=== PATIENT | female | born 1935 | race Caucasian/White ===

== ENCOUNTER 2018-05-06 20:25 | Inpatient (IN) | payer MEDICARE ==
[~2018-05-06] VITALS: Ht 149.9 cm; Wt 61.7 kg
[2018-05-06 20:38] VITALS: BP 155/71
[2018-05-06 20:59] LABS: ABSOLUTE EOSINOPHILS 0.1 thou/uL (0.0-0.7); ABSOLUTE MONOCYTES 0.5 thou/uL (0.0-1.2); ABSOLUTE NEUTROPHILS 3.6 thou/uL (1.6-8.1); BASOPHILS 0.5 %; EOSINOPHILS 1.5 %; HEMATOCRIT 39.8 % (37.0-47.0); HEMOGLOBIN 13.3 gm/dL (12.0-15.0); LYMPHOCYTES 32.6 %; MCH 31.6 pg (26.0-34.0); MCHC 33.3 g/dL (28.0-37.0); MCV 94.7 fL (80.0-100.0); MONOCYTES 8.5 %; MPV 7.4 fl. (7.2-11.1); NUCLEATED RBCS 0 /100WBC; PLATELET COUNT* 170 thou/uL (150-400); POLYS 56.9 %; RDW-CV 14.4 % (10.5-14.5); WBC 6.3 thou/uL (4.0-11.0)
[2018-05-06 21:08] LABS: ANION GAP 5 mmol/L (7-16); BUN 16 mg/dL (7-18); CALCIUM 9.4 mg/dL (8.5-10.1); CHLORIDE 101 mmol/L (98-107); CO2 34 mmol/L (21-32); CREATININE 0.8 mg/dL (0.6-1.3); GLUCOSE 172 mg/dL (70-99); POTASSIUM 3.6 mmol/L (3.5-5.1); SODIUM 140 mmol/L (136-145)
[2018-05-06 21:10] LABS: INR 1.1; PROTIME 10.9 Seconds (9.20-11.50)
[2018-05-06 21:11] LABS: URINE CLARITY CLEAR; URINE COLOR AMBER; URINE SPECIFIC GRAVITY ND (1.005-1.030)
[2018-05-06] MEDS ORDERED: XANAX 0.25 MG0.25 MG PO (21:16)
[2018-05-06] MEDS ORDERED: ATENOLOL 50MG T50 M1 PO (21:16)
[2018-05-06] MEDS ORDERED: AMLODIPINE BESY10 MG PO (21:16)
[2018-05-06] MEDS ORDERED: COZAAR 25 MG TA25 M1 PO (21:17)
[2018-05-06] MEDS ORDERED: GLUCOTROL5 MG PO (21:17)
[2018-05-06] MEDS ORDERED: METFORMIN HCL500 MG PO (21:17)
[2018-05-06] MEDS ORDERED: IBUPROFEN 200200 M1 PO (21:17)
[2018-05-06 21:18] LABS: ACETEST (KETONE CONFIRMATORY) Negative (Negative); SSA (PROTEIN CONFIRMATORY) NEGATIVE (Negative); URINE BILIRUBIN ND (Negative); URINE GLUCOSE-RANDOM ND (Negative); URINE KETONES ND (Negative); URINE PROTEIN ND (Negative); URINE REDUCING SUBSTANCE NEGATIVE (Negative)
[2018-05-06] MEDS ORDERED: ZOCOR20 MG PO (21:18)
[2018-05-06] MEDS ORDERED: ROBAXIN 750 MG750 M1 PO (21:18)
[2018-05-06 21:19] LABS: ALBUMIN 3.7 g/dL (3.4-5.0); ALKALINE PHOSPHATASE 87 U/L (46-116); LIPASE 141 U/L (73-393); NT-PRO BRAIN NAT PEPTIDE 442 pg/mL (<300); SGOT 25 U/L (15-37); SGPT 33 U/L (30-65); TOTAL BILIRUBIN 0.9 mg/dL (<0.1-1.0); TOTAL PROTEIN 6.9 g/dL (6.4-8.2); TROPONIN-I LEVEL <0.06 ng/mL (<0.06)
[2018-05-06 21:19] LABS: ICTOTEST (BILI CONFIRMATORY) Negative (Negative); URINE BLOOD ND (Negative); URINE LEUKOCYTES-REFLEX ND (Negative); URINE NITRITE-REFLEX ND (Negative); URINE UROBILINOGEN ND E.U./dl (0.2-1.0)
[2018-05-06] MEDS ORDERED: FUROSEMIDE 40 M40 M1 PO (21:19)
[2018-05-06] MEDS ORDERED: TRAZODONE 150150 M1 PO (21:19)
[2018-05-06] MEDS ORDERED: TRAMADOL 50 MG50 MG PO (21:19)
[2018-05-06 21:27] LABS: SQUAMOUS NONE SEEN /LPF (0-3)
[2018-05-06 21:28] LABS: BACTERIA-REFLEX 1-9 Few /HPF (None Seen); CASTS None Seen /LPF (None Seen); CRYSTALS None Seen /LPF (None Seen); MUCUS None Seen strn/LPF (None Seen); URINE RBC 3-10 Few /HPF (0-2); URINE WBC-REFLEX None Seen /HPF (0-5)
[2018-05-06 22:25] VITALS: BP 140/70
[2018-05-06 23:30] VITALS: BP 145/45
[2018-05-07 04:00] VITALS: BP 138/51
[2018-05-07 04:20] LABS: HEMATOCRIT 35.2 % (37.0-47.0); HEMOGLOBIN 11.9 gm/dL (12.0-15.0); MCH 31.9 pg (26.0-34.0); MCHC 33.9 g/dL (28.0-37.0); MCV 94.2 fL (80.0-100.0); MPV 7.8 fl. (7.2-11.1); RBC 3.73 mil/uL (4.20-5.00); RDW-CV 14.1 % (10.5-14.5); WBC 5.9 thou/uL (4.0-11.0)
[2018-05-07 04:42] LABS: ALBUMIN 3.1 g/dL (3.4-5.0); CREATININE 0.7 mg/dL (0.6-1.3); POTASSIUM 3.7 mmol/L (3.5-5.1); TOTAL BILIRUBIN 0.7 mg/dL (<0.1-1.0); TOTAL PROTEIN 5.7 g/dL (6.4-8.2)
[2018-05-07] MEDS ORDERED: MELATONIN5 M1 PO (07:28)
[2018-05-07] MEDS ORDERED: COD LIVER OIL1 EAC4 PO (07:28)
[2018-05-07] MEDS ORDERED: ZINC30 M1 PO (07:30)
[2018-05-07] MEDS ORDERED: VITAMIN D31000 UNI2 PO (07:31)
[2018-05-07] MEDS ORDERED: VITAMIN C250 MG PO (07:32)
[2018-05-07] MEDS ORDERED: MAGOX 400400 MG PO (07:32)
[2018-05-07 08:10] VITALS: BP 153/61
[2018-05-07 11:28] VITALS: BP 126/51
--- NOTE | 2018-05-07 13:03 | EKG ---
[place] [address] ELECTROCARDIOGRAM REPORT Name: BRENDEN EASTON Room: [address] ADM IN [facility].#: [id number] Admission: 05/06/18 Attend Phys: Kelvin Rojas Discharge: Date of : 37 Report #: [id number] THIS REPORT FOR: //name// [facility] ED Test Date: 2018-05-06 Test Time: 20:31:14 Pat Name: BRENDEN EASTON Department: Room: [facility] Gender: F Linen Room Attendant: [place] : 1935 Requested By: Catalina Lopez Order Number: [id number] MD: Feng Baig Measurements Intervals [place] Rate: 54 P: 39 IN: 192 QRS: -11 QRSD: 98 T: 40 QT: 438 QTc: 416 Interpretive Statements Sinus bradycardia LVH with secondary repolarization abnormality Anterior Q waves, possibly due to LVH No previous ECG available for comparison Electronically Signed On 05-07-2018 13:03:29 CDT by Feng Baig [email or web address] <ELECTRONICALLY SIGNED> By: Feng Baig MD, [facility] 05/07/18 1303 30 30 Feng Baig MD, FACC /EPI
--- NOTE | 2018-05-07 16:27 | 2DMMODE ---
[place] [address] 2 D/M-MODE ECHOCARDIOGRAM Name: BRENDEN EASTON Room: [address] IN [facility]#: [id number] Admission: 05/06/18 Attend Phys: Brandan Loyola Discharge: Date of : 37 Date of Service: 05/07/18 1627 Report #: [id number] THIS REPORT FOR: //name// APPROVED REPORT Study performed: 05/07/2018 14:53:52 EXAM: Comprehensive 2D, Doppler, and color-flow Echocardiogram Patient Location: In-Patient Room #: 218 Status: routine BSA: 1.57 HR: 56 bpm BP: 153/61 mmHg Rhythm: NSR Other Information Study Quality: Good Indications Bradycardia Chest Pain 2D Dimensions IVSd: 10.14 (7-11mm) LVOT Diam: 20.23 (18-24mm) LVDd: 44.30 mm PWd: 8.68 (7-11mm) Ascending Ao: 31.21 (22-36mm) LVDs: 27.07 (25-40mm) Aortic Root: 29.45 mm Volumes Left Atrial Volume (Systole) LA ESV Index: 42.30 mL/m2 Aortic Valve AoV Peak Enrrique.: 1.52 m/s AO Peak Gr.: 9.19 mmHg LVOT Max P.62 mmHg AO Mean Gr.: 4.64 mmHg LVOT Mean P.27 mmHg LVOT Max V: 0.81 m/s AO V2 VTI: 36.20 cm LVOT Mean V: 0.51 m/s DIMITRI (VTI): 1.98 cm2 LVOT V1 VTI: 22.34 cm Mitral Valve E/A Ratio: 1.11 MV Decel. Time: 204.48 [place] [address] 2 D/M-MODE ECHOCARDIOGRAM Name: BRENDEN EASTON Room: [address] IN .R.#: [id number] Admission: 05/06/18 Attend Phys: Brandan Loyola Discharge: Date of : 37 Date of Service: 05/07/18 1627 Report #: [id number] MV E Max Enrrique.: 0.90 m/s MV PHT: 59.30 ms MVA (PHT): 3.71 cm2 TDI E/Lateral E': 12.86 E/Medial E': 11.25 Medial E' Enrrique.: 0.08 m/s Lateral E' Enrrique.: 0.07 m/s Pulmonary Valve PV Peak Enrrique.: 0.88 m/s PV Peak Gr.: 3.08 mmHg Tricuspid Valve RAP Estimate: 5.00 mmHg TR Peak Gr.: 20.12 mmHg RVSP: 25.00 mmHg PA Pressure: 25.00 mmHg Left Ventricle The left ventricle is normal size. There is normal LV segmental wall motion. There is normal left ventricular wall thickness. Left ventricular systolic function is normal. LVEF is 60-65%. Left ventricular filling pattern is normal for age. Right Ventricle The right ventricle is normal size. The right ventricular systolic function is normal. Atria Left atrium is mildly dilated. The right atrium size is normal. Aortic Valve The aortic valve is normal in structure. No aortic regurgitation is present. There is no aortic valvular stenosis. Mitral Valve There is mitral annular calcification. Trace mitral regurgitation. No evidence of mitral valve stenosis. Tricuspid Valve The tricuspid valve is normal in structure. Trace tricuspid regurgitation. No pulmonary hypertension. Pulmonic Valve The pulmonary valve is normal in structure. Trace [place] [address] 2 D/M-MODE ECHOCARDIOGRAM Name: BRENDEN EASTON Room: [address]#: [id number] Admission: 05/06/18 Attend Phys: Brandan Loyola Discharge: Date of : 37 Date of Service: 05/07/18 1627 Report #: [id number] Great Vessels The aortic root is normal in size. IVC is normal in size and collapses >50% with inspiration. Pericardium There is no pericardial effusion. <Conclusion> The left ventricle is normal size. There is normal left ventricular wall thickness. Left ventricular systolic function is normal. LVEF is 60-65%. Left ventricular filling pattern is normal for age. Left atrium is mildly dilated. Trace mitral regurgitation. Trace tricuspid regurgitation. No pulmonary hypertension. <ELECTRONICALLY SIGNED> By: Tre Perez MD, FACC 05/07/18 162 26 26 Tre Perez MD, FACC /INF
[2018-05-07 19:15] VITALS: BP 136/61
[2018-05-08] VITALS (7 sets, daily range): BP systolic 114–139; BP diastolic 47–61
[2018-05-08 04:37] LABS: ABSOLUTE EOSINOPHILS 0.1 thou/uL (0.0-0.7); ABSOLUTE LYMPHOCYTES 1.9 thou/uL (0.8-5.3); ABSOLUTE MONOCYTES 0.6 thou/uL (0.0-1.2); ABSOLUTE NEUTROPHILS 4.1 thou/uL (1.6-8.1); BASOPHILS 0.5 %; EOSINOPHILS 1.9 %; HEMATOCRIT 37.2 % (37.0-47.0); HEMOGLOBIN 12.3 gm/dL (12.0-15.0); LYMPHOCYTES 28.7 %; MCH 31.5 pg (26.0-34.0); MCHC 33.1 g/dL (28.0-37.0); MCV 95.3 fL (80.0-100.0); MONOCYTES 8.2 %; MPV 7.7 fl. (7.2-11.1); NUCLEATED RBCS 0 /100WBC; PLATELET COUNT* 156 thou/uL (150-400); POLYS 60.7 %; RDW-CV 14.3 % (10.5-14.5); WBC 6.7 thou/uL (4.0-11.0)
[2018-05-08 04:58] LABS: CALCIUM 9.2 mg/dL (8.5-10.1); CREATININE 0.8 mg/dL (0.6-1.3); POTASSIUM 3.9 mmol/L (3.5-5.1)
--- NOTE | 2018-05-08 12:58 | CARDNUC ---
[place] [address] CARDIAC NUCLEAR IMAGING REPORT Name: BRENDEN EASTON Room: [address] IN [facility]#: [id number] Admission: 05/06/18 Attend Phys: Brandan Loyola Discharge: Date of : 37 Date of Service: 05/08/18 1257 Report #: [id number] THIS REPORT FOR: //name// APPROVED REPORT Study performed: 05/07/2018 09:52:00 Indication: Chest pain Patient Location: In-Patient Room #: 218 Stress Tech: [place] Stress Nurse: Alma Calderon RN Ht: 4 ft 11 in Wt: 136 lbs BSA: 1.57 m2 BMI: 27.46 Medical History Medical History: hyperlipidemia, hypertension, diabetes Medications: enoparin, amlodipine, atenolol, losartan Allergies: nkda Cardiac Risk Factors: age, hyperlipidemia, hypertension, diabetes, family hx Previous Cardiac Procedures: none Exercise History: Indeterminate Resting Data Rest SPECT myocardial perfusion imaging was performed in supine position 30 minutes following the intravenous injection of 10.2 mCi of Tc-99m Sestamibi. Time of rest injection: 14:50 The images were gated to evaluate regional wall motion and calculate left ventricular ejection fraction. Administration Route: IV Stress Test Details Stress Test: Pharmacologic stress testing performed using 0.4 mg of regadenoson per 5 mL given IV over 10 seconds. Reason for pharmacologic stress test: physical limitation. HR Max Heart Rate (APMHR): 139 bpm Resting HR: 60 bpm Target HR (85% APMHR): 118 bpm Max HR Achieved: 78 bpm % of APMHR: 56 Recovery HR: 72 [place] [address] CARDIAC NUCLEAR IMAGING REPORT Name: JEMMABRENDEN Michael Room: [address]#: [id number] Admission: 05/06/18 Attend Phys: Brandan Loyola Discharge: Date of : 37 Date of Service: 05/08/18 1257 Report #: [id number] Resting BP: 144/68 mmHg Recovery BP: 155/75 mmHg ECG Resting ECG: Sinus Rhythm, nonspecific ST-T abnormalities Stress ECG: Sinus Rhythm, nonspecific ST-T abnormalities ST Change: None Arrhythmia: None Recovery ECG: Sinus Rhythm, nonspecific ST-T abnormalities Recovery ST Change: None Recovery Arrhythmia: None Clinical Reason for Termination: Completed protocol Exercise duration: 0 min sec Exercise capacity: 1 METs The patient tolerated Lexiscan infusion without significant symptoms. Nurse Comments grace done dt pt weakness Stress ECG Conclusion The baseline 12-lead EKG shows sinus rhythm with nonspecific ST segment depression. EKGs obtained during and post Lexiscan infusion show sinus rhythm with no significant ST or T wave changes when compared baseline. There were no stress-induced arrhythmias. Study Quality Study: Good Artifact: No artifact Study Data At rest, the left ventricular ejection fraction was 70%.. Post stress, the left ventricular ejection was 71%.. TID = 0.93. Perfusion Normal left ventricular perfusion. Wall Motion Normal left [place] [address] CARDIAC NUCLEAR IMAGING REPORT Name: BRENDEN EASTON Room: [address]#: [id number] Admission: 05/06/18 Attend Phys: Brandan Loyola Discharge: Date of : 37 Date of Service: 05/08/18 1257 Report #: [id number] Nuclear Conclusion ECG Findings: negative for ischemia Clinical Findings: negative for ischemia Nuclear Findings: negative for ischemia Exercise Capacity: not assessed Left Ventricular Function: normal Risk Study: low Myocardial perfusion images show no defect to suggest infarct or ischemia. Left ventricular systolic function is normal on gated studies. This is a low risk study. <Conclusion> The baseline 12-lead EKG shows sinus rhythm with nonspecific ST segment depression. EKGs obtained during and post Lexiscan infusion show sinus rhythm with no significant ST or T wave changes when compared baseline. There were no stress-induced arrhythmias. <ELECTRONICALLY SIGNED> By: Tre Perez MD, [facility] 05/08/18 1257 1257 1257 Tre Perez MD, FACC /INF
== END 2018-05-08 19:24 | disposition home or self-care (01) | DRG 194 ==
LOC: M.ERS 20:25 → M.TBA-ER 21:47 → M.2W 21:47
PROVIDERS: Emergency Medicine; Internal Medicine; ADMIT Internal Medicine
DX: R09.1 Pleurisy (principal); E44.1 Mild protein-calorie malnutrition; R07.89 Other chest pain; M54.9 Dorsalgia, unspecified; M25.519 Pain in unspecified shoulder; E78.5 Hyperlipidemia, unspecified; I10 Essential (primary) hypertension; E11.9 Type 2 diabetes mellitus without complications; F41.9 Anxiety disorder, unspecified; M19.90 Unspecified osteoarthritis, unspecified site; R35.0 Frequency of micturition; G89.29 Other chronic pain; E11.65 Type 2 diabetes mellitus with hyperglycemia; Z23 Encounter for immunization; Z90.49 Acquired absence of other specified parts of digestive tract; Z79.899 Other long term (current) drug therapy

== ENCOUNTER 2018-06-25 10:55 | Emergency (ER) | payer MEDICARE ==
[~2018-06-25] VITALS: Ht 149.9 cm; Wt 59.9 kg
[~2018-06-25 10:55] MED LIST: AMLODIPINE BESY10 MG PO; ATENOLOL 50MG T50 M1 PO; COD LIVER OIL1 EAC4 PO; COZAAR 25 MG TA25 M1 PO; FUROSEMIDE 40 M40 M1 PO; GLUCOTROL5 MG PO; IBUPROFEN 200200 M1 PO; MAGOX 400400 MG PO; MELATONIN5 M1 PO; METFORMIN HCL500 MG PO; ROBAXIN 750 MG750 M1 PO; TRAMADOL 50 MG50 MG PO; TRAZODONE 150150 M1 PO; VITAMIN C250 MG PO; VITAMIN D31000 UNI2 PO; XANAX 0.25 MG0.25 MG PO; ZINC30 M1 PO; ZOCOR20 MG PO
[2018-06-25 12:39] LABS: ABSOLUTE EOSINOPHILS 0.1 thou/uL (0.0-0.7); ABSOLUTE LYMPHOCYTES 1.6 thou/uL (0.8-5.3); ABSOLUTE MONOCYTES 0.6 thou/uL (0.0-1.2); ABSOLUTE NEUTROPHILS 4.3 thou/uL (1.6-8.1); BASOPHILS 0.5 %; EOSINOPHILS 2.2 %; HEMATOCRIT 38.6 % (37.0-47.0); HEMOGLOBIN 12.9 gm/dL (12.0-15.0); LYMPHOCYTES 24.2 %; MCH 32.1 pg (26.0-34.0); MCHC 33.3 g/dL (28.0-37.0); MCV 96.5 fL (80.0-100.0); MONOCYTES 8.6 %; MPV 7.3 fl. (7.2-11.1); NUCLEATED RBCS 0 /100WBC; PLATELET COUNT* 183 thou/uL (150-400); POLYS 64.5 %; RDW-CV 14.1 % (10.5-14.5); WBC 6.7 thou/uL (4.0-11.0)
[2018-06-25 12:47] LABS: ANION GAP 8 mmol/L (7-16); BUN 15 mg/dL (7-18); CALCIUM 9.5 mg/dL (8.5-10.1); CHLORIDE 100 mmol/L (98-107); CO2 29 mmol/L (21-32); CREATININE 0.8 mg/dL (0.6-1.3); GLUCOSE 119 mg/dL (70-99); POTASSIUM 3.5 mmol/L (3.5-5.1); SODIUM 137 mmol/L (136-145)
[2018-06-25 12:58] LABS: ALBUMIN 3.4 g/dL (3.4-5.0); ALKALINE PHOSPHATASE 89 U/L (46-116); NT-PRO BRAIN NAT PEPTIDE 280 pg/mL (<300); SGOT 33 U/L (15-37); SGPT 30 U/L (30-65); TROPONIN-I LEVEL <0.06 ng/mL (<0.06)
[2018-06-25 13:22] LABS: INFLUENZA A ANTIGEN None Detected (None Detect); INFLUENZA B ANTIGEN None Detected (None Detect)
[2018-06-25] MEDS ORDERED: MUCINEX600 MG PO (13:59)
[2018-06-25] MEDS ORDERED: VENTOLIN HFA 1818 GM INH (13:59)
[2018-06-25] MEDS ORDERED: LEVAQUIN 750 M750 MG PO (13:59)
[2018-06-25 14:06] LABS: URINE BILIRUBIN NEGATIVE (Negative); URINE BLOOD NEGATIVE (Negative); URINE CLARITY CLEAR; URINE COLOR YELLOW; URINE GLUCOSE-RANDOM NEGATIVE (Negative); URINE KETONES NEGATIVE (Negative); URINE LEUKOCYTES-REFLEX NEGATIVE (Negative); URINE NITRITE-REFLEX NEGATIVE (Negative); URINE PROTEIN NEGATIVE (Negative); URINE SPECIFIC GRAVITY <= 1.005 (1.005-1.030); URINE UROBILINOGEN 0.2 E.U./dl (0.2-1.0)
[2018-06-25 14:28] VITALS: BP 123/57
--- NOTE | 2018-06-25 17:50 | EKG ---
[place] [address] ELECTROCARDIOGRAM REPORT Name: EASTONBRENDEN CRAWFORD Room: [facility]#: [id number] Admission: 06/25/18 Attend Phys: Discharge: 06/25/18 Date of : 37 Report #: [id number] THIS REPORT FOR: //name// [facility] ED Test Date: 2018-06-25 Test Time: 12:04:26 Pat Name: BRENDEN EASTON Department: Room: Gender: F Diving Fisher: YESENIA : 1935 Requested By: Kev Fernando Order Number: [id number] MD: Tre Perez Measurements Intervals [place] Rate: 42 P: 60 [place]: 170 QRS: -10 QRSD: 97 T: 11 QT: 495 QTc: 414 Interpretive Statements Sinus bradycardia Left ventricular hypertrophy Anterior Q waves, possibly due to LVH Compared to ECG 05/06/2018 20:31:14 Early repolarization no longer present Electronically Signed On 06-25-2018 17:50:20 FOUNDRY WORKER GENERAL by Tre Perez [email or web address] <ELECTRONICALLY SIGNED> By: Tre Perez MD, [facility] 06/25/18 5830 1204 1204 Tre Perez MD, [facility] /EPI
== END 2018-06-25 14:28 | disposition home or self-care (01) ==
LOC: M.ERS 10:55
PROVIDERS: Nurse Practitioner Family
DX: J18.9 Pneumonia, unspecified organism (principal); Z98.890 Other specified postprocedural states

== ENCOUNTER 2018-06-27 12:59 | Inpatient (IN) | payer MEDICARE ==
[~2018-06-27] VITALS: Ht 149.9 cm; Wt 58.9 kg
[~2018-06-27 12:59] MED LIST changes: +LEVAQUIN 750 M750 MG PO; +MUCINEX600 MG PO; +VENTOLIN HFA 1818 GM INH
[2018-06-27 13:04] VITALS: BP 160/59
[2018-06-27 13:42] LABS: ABSOLUTE LYMPHOCYTES 0.8 thou/uL (0.8-5.3); ABSOLUTE MONOCYTES 0.6 thou/uL (0.0-1.2); ABSOLUTE NEUTROPHILS 3.7 thou/uL (1.6-8.1); BASOPHILS 0.5 %; EOSINOPHILS 0.3 %; HEMOGLOBIN 13.2 gm/dL (12.0-15.0); LYMPHOCYTES 14.9 %; MCHC 33.9 g/dL (28.0-37.0); MCV 94.6 fL (80.0-100.0); MONOCYTES 11.8 %; MPV 7.5 fl. (7.2-11.1); NUCLEATED RBCS 0 /100WBC; PLATELET COUNT* 203 thou/uL (150-400); POLYS 72.5 %; RBC 4.12 mil/uL (4.20-5.00); RDW-CV 13.9 % (10.5-14.5); WBC 5.1 thou/uL (4.0-11.0)
[2018-06-27 13:53] LABS: CALCIUM 9.9 mg/dL (8.5-10.1); CREATININE 0.9 mg/dL (0.6-1.3); POTASSIUM 3.6 mmol/L (3.5-5.1)
[2018-06-27 13:58] LABS: ALBUMIN 3.4 g/dL (3.4-5.0); TOTAL BILIRUBIN 1.1 mg/dL (<0.1-1.0); TOTAL PROTEIN 6.9 g/dL (6.4-8.2)
[2018-06-27 16:55] VITALS: BP 140/53
[2018-06-27 17:12] VITALS: BP 151/64
[2018-06-27] MEDS ORDERED: FLONASE 0.05%50 MCG NASAL (17:39)
--- NOTE | 2018-06-27 17:45 | NUR ---
PATIENT CAME TO THE FLO0R FROM THE ER IN STABLE CONDITION. VITAL SIGNS STABLE ON ROOM AIR. NO COMPLAINTS OF ANY PAIN AT THIS TIME. UP WITH STAND BY ASSIST AND WALKER TO THE BATHROOM, SOME WEAKNESS FROM ILLNESS. ROOM ORIENTATION AND ADMISSION ASSESSMENT DONE. CALL LIGHT IS IN REACH, WILL CONTINUE TO MONITOR,
[2018-06-27 18:43] LABS: URINE BILIRUBIN NEGATIVE (Negative); URINE BLOOD NEGATIVE (Negative); URINE CLARITY CLEAR; URINE COLOR YELLOW; URINE GLUCOSE-RANDOM NEGATIVE (Negative); URINE KETONES NEGATIVE (Negative); URINE LEUKOCYTES NEGATIVE (Negative); URINE NITRITE NEGATIVE (Negative); URINE PROTEIN NEGATIVE (Negative); URINE UROBILINOGEN 0.2 E.U./dl (0.2-1.0)
[2018-06-27 19:40] VITALS: BP 131/49
[2018-06-27 20:08] LABS: NT-PRO BRAIN NAT PEPTIDE 376 pg/mL (<300); TROPONIN-I LEVEL <0.06 ng/mL (<0.06)
[2018-06-28 00:08] VITALS: BP 119/49
[2018-06-28 04:05] VITALS: BP 114/96
[2018-06-28 04:32] LABS: HEMATOCRIT 36.3 % (37.0-47.0); HEMOGLOBIN 12.1 gm/dL (12.0-15.0); MCH 31.9 pg (26.0-34.0); MCHC 33.4 g/dL (28.0-37.0); MCV 95.6 fL (80.0-100.0); MPV 7.7 fl. (7.2-11.1); NUCLEATED RBCS 0 /100WBC; PLATELET COUNT* 215 thou/uL (150-400); RDW-CV 13.7 % (10.5-14.5); WBC 5.8 thou/uL (4.0-11.0)
[2018-06-28 04:36] LABS: INR 1.1; PROTIME 11.2 Seconds (9.20-11.50)
--- NOTE | 2018-06-28 04:55 | NUR ---
PT SLEPT ON AND OFF THIS SHIFT. ASSESSMENT DOCUMENTED. MEDS GIVEN PER -SEP. IV PATENT, FLUIDS INFUSING. NO REPORTS OF PAIN THIS SHIFT. PTS PM ACCUCHECK WAS 271, DR NOTIFIED, LOW DOSE SLIDING SCALE ORDERED AND ADMINISTERED PER -SEP. PT REMAINED NPO AFTER 0000. PT VOIDED PER BATHROOM WITH SBA. WILL CONTINUE WITH PLAN OF CARE.
[2018-06-28 05:01] LABS: CALCIUM 8.9 mg/dL (8.5-10.1); CREATININE 0.8 mg/dL (0.6-1.3); POTASSIUM 3.4 mmol/L (3.5-5.1); TOTAL BILIRUBIN 0.5 mg/dL (<0.1-1.0); TOTAL PROTEIN 6.3 g/dL (6.4-8.2)
[2018-06-28 05:36] LABS: ABSOLUTE LYMPHOCYTES 0.6 thou/uL (0.8-5.3); ABSOLUTE MONOCYTES 0.1 thou/uL (0.0-1.2); ABSOLUTE NEUTROPHILS 5.1 thou/uL (1.6-8.1); ANISOCYTOSIS Occasional; PLATELET ESTIMATE ADEQUATE; TOXIC GRANULATION 1+
[2018-06-28 08:30] VITALS: BP 144/70
--- NOTE | 2018-06-28 15:37 | EKG ---
[place] [address] ELECTROCARDIOGRAM REPORT Name: BRENDEN EASTON Room: [address] ADM IN .R.#: [id number] Admission: 06/27/18 Attend Phys: Lubna Harrison Discharge: Date of : 37 Report #: [id number] THIS REPORT FOR: //name// [facility] ED Test Date: 2018-06-27 Test Time: 13:11:31 Pat Name: BRENDEN EASTON Department: Room: [facility] Gender: F Design Engineer: Kaylyn SUNG : 1935 Requested By: Ciara Low Order Number: [id number] MD: Tre Perez Measurements Intervals [place] Rate: 56 P: 35 NM: 181 QRS: -13 QRSD: 106 T: 38 QT: 475 QTc: 459 Interpretive Statements Sinus rhythm Probable left ventricular hypertrophy Compared to ECG 06/25/2018 12:04:26 Sinus bradycardia no longer present Q waves no longer present Electronically Signed On 06-28-2018 15:37:19 PROJECT ENGINEERING DIRECTOR by Tre Perez [email or web address] <ELECTRONICALLY SIGNED> By: Tre Perez MD, FACC 06/28/18 1537 1311 1311 Tre Perez MD, FACC /EPI
[2018-06-28 16:00] VITALS: BP 125/49
--- NOTE | 2018-06-28 18:00 | NUR ---
PT ALERT AND ORIENTED X 4. DENIES PAIN. IVF INFUSING @ 100 MLS/HR. UP WITH SBA X 1 WITH WALKER. LEVAQUIN LISTED ALLERGY. APPLIED TOPICAL CREAMS FOR ITCHING TO BACK, EXTREMITIES, AND SCALP. IV INFILTRATED LATE IN AM-RESTARTED IN LAC. HOURLY ROUNDS MAINTAINED. CALL LIGHT WITHIN REACH.
[2018-06-28 18:07] LABS: IgG 470 mg/dL (700-1600)
[2018-06-28 19:30] VITALS: BP 144/75
[2018-06-28 21:46] LABS: TROPONIN-I LEVEL <0.06 ng/mL (<0.06)
[2018-06-29] VITALS: BP 149/62
[2018-06-29 04:00] VITALS: BP 156/79
[2018-06-29 04:57] LABS: ABSOLUTE LYMPHOCYTES 2.2 thou/uL (0.8-5.3); ABSOLUTE MONOCYTES 0.6 thou/uL (0.0-1.2); ABSOLUTE NEUTROPHILS 6.5 thou/uL (1.6-8.1); BASOPHILS 0.4 %; EOSINOPHILS 0.3 %; HEMATOCRIT 33.8 % (37.0-47.0); HEMOGLOBIN 11.4 gm/dL (12.0-15.0); LYMPHOCYTES 23.4 %; MCH 32.3 pg (26.0-34.0); MCHC 33.8 g/dL (28.0-37.0); MCV 95.5 fL (80.0-100.0); MONOCYTES 6.4 %; MPV 7.5 fl. (7.2-11.1); NUCLEATED RBCS 0 /100WBC; PLATELET COUNT* 216 thou/uL (150-400); POLYS 69.5 %; RBC 3.54 mil/uL (4.20-5.00); RDW-CV 14.2 % (10.5-14.5); WBC 9.4 thou/uL (4.0-11.0)
--- NOTE | 2018-06-29 05:00 | NUR ---
PT SLEPT MOST OF SHIFT. ASSESSMENT DOCUMENTED. MEDS GIVEN PER E-MAR. IV PATENT, FLUIDS DC'D. PT REPORTED HAVING CHEST PAIN AT THE BEGINING OF THIS SHIFT. SHE STATED IT WAS A HEAVY DULL PAIN ON THE LEFT SIDE OF HER CHEST AND ALSO IN HER LEFT HAND, BUT THAT IT DID NOT RADIATE DOWN HER ARM. EKG DONE PER PROTOCAL, VITAL SIGNS OBTAINED. DR NOTIFIED, ORDERS RECIEVED, PT PLACED ON TELE MONITOR. PT STATED THAT PAIN WOULD "MOVE AROUND" BUT DID NOT LAST VERY LONG. SHE STATED THAT SHE HAS HAD SIMILAR PAIN BEFORE BUT THAT IT HAS NEVER HURT BAD THAT BEFORE. ANXIETY MEDS GIVEN PER E-MAR WITH RELIEF. PT REFUSED MINERAL OIL SHE STATED THAT SHE KEPT GETTING IT IN HER EYES. WILL CONTINUE WITH PLAN OF CARE.
[2018-06-29 05:13] LABS: TROPONIN-I LEVEL <0.06 ng/mL (<0.06)
[2018-06-29 08:05] VITALS: BP 171/69
--- NOTE | 2018-06-29 10:27 | EKG ---
[place] [address] ELECTROCARDIOGRAM REPORT Name: EASTONBRENDEN Room: [address] ADM IN .R.#: [id number] Admission: 06/27/18 Attend Phys: Lubna Harrison Discharge: Date of : 37 Report #: [id number] THIS REPORT FOR: //name// [facility] Test Date: 2018-06-28 Test Time: 20:40:11 Pat Name: BRENDEN EASTON Department: Room: [address] Gender: F School Psychometrist: [facility] : 1935 Requested By: Thanh Monet Order Number: [id number] Ynes MD: Feng Baig Measurements Intervals [place] Rate: 65 P: 49 SC: 191 QRS: -4 QRSD: 96 T: 23 QT: 427 QTc: 444 Interpretive Statements Sinus arrhythmia nonspecific st changes Compared to ECG 06/27/2018 13:11:31 Sinus bradycardia no longer present Electronically Signed On 06-29-2018 10:27:08 HOSE FINISHER by Feng Baig [email or web address] <ELECTRONICALLY SIGNED> By: Feng Baig MD, [facility] 06/29/18 1027 39 39 Feng Baig MD, [facility] /EPI
[2018-06-29 14:47] LABS: ALBUMIN 2.8 g/dL (3.4-5.0); CALCIUM 8.6 mg/dL (8.5-10.1); CREATININE 0.9 mg/dL (0.6-1.3); POTASSIUM 3.4 mmol/L (3.5-5.1); TOTAL BILIRUBIN 0.7 mg/dL (<0.1-1.0); TOTAL PROTEIN 5.9 g/dL (6.4-8.2)
[2018-06-29 16:00] VITALS: BP 130/61
--- NOTE | 2018-06-29 16:25 | NUR ---
SW met with pt to complete initial assessment, introduce self, and SW role. SW also spoke with pt ugo Man over the phone (Magda known to SW from previous admission of Magda's mother who since is .) Pt lived with Magda for a while after pt sister's , but now lives in an apt alone. Pt alert, oriented, talkative. Pt lives in Sr HUD housing in [place]. Pt says she is Medicaid pending. Pt has a RW if needed. Pt had hx of HH in [place] and would be open to HH services at [place] if needed. Pt nidorian said she would be able to provide pt ride home but only after work/after 5 pm. SW to continue to follow to assist with safe dc planning.
--- NOTE | 2018-06-29 17:37 | NUR ---
PT ALERT AND ORIENTED X 4. PT DENIES PAIN. UP WITH SBA AND WALKER IN AM. PT APPEARED LETHARGIC FROM CLONAZEPAM. REPORTED HEADACHE--TYLENOL EFFECTIVE FOR PAIN RELIEF. PT REFUSED TOPICAL MEDICATIONS IN AM. PT MORE ALERT IN AFTERNOON. IV PATENT. CONTINUES ON BUSHING PRESS OPERATOR. X-RAY COMPLETED IN AFTERNOON. AMBULATED AROUND UNIT WITH SBA X1 AND WALKER. HOURLY ROUNDS MAINTAINED. NURSING TO CONTINUE TO MONITOR.
[2018-06-29 18:09] LABS: HEPATITIS B SURFACE AG Negative (Negative)
[2018-06-29 20:00] VITALS: BP 100/61
[2018-06-30] VITALS: BP 156/76
[2018-06-30 04:00] VITALS: BP 171/65
--- NOTE | 2018-06-30 05:21 | NUR ---
PT SLEPT ON AND OFF THIS SHIFT. ASSESSMENT DOCUMENTED. MEDS GIVEN PER E-SEP. IV PATENT. NO REPORTS OF PAIN THIS SHIFT. PT REPORTED THAT HER SCALP WAS STARTING TO ITCH AGAIN AND REQUESTED THE MINERAL OIL. PT AMBULATED IN [place] THIS SHIFT. TELE MONITOR IN PLACE READING SINUS ARRYTHMIA WITH OCCASIONAL PVC'S. WILL CONTINUE WITH PLAN OF CARE.
[2018-06-30 08:10] VITALS: BP 138/67
[2018-06-30 12:00] VITALS: BP 196/60
[2018-06-30 12:13] VITALS: BP 196/60
[2018-06-30] MEDS ORDERED: CEFDINIR300 MG PO (12:17)
--- NOTE | 2018-06-30 16:24 | NUR ---
ASSESSMENT COMPLETE. PT ALERT AND ORIENTED X4. CALM AND PLEASANT. PT DENIES ANXIETY. PT DENIES PAIN AND N/V. PT IS ON ROOM AIR WITH [place] SATS. SCD'S IN PLACE WHEN IN BED. PT IS ACCUCHECK. PO ABX GIVEN ORDERED. PT IS UP AD ROGELIO WITH STEADY GAIT. PT DISCHARGED HOME WITH NEICE. IV DC'D WITHOUT ANY DIFFICULTIES. DISCHARGE PAPERWORK AND SCRIPT SENT WITH PATIENT. PATIENT WENT TO PERSONAL VEHICLE VIA WHEELCHAIR WITH NURSING STAFF. PATIENT VERBALIZES UNDERSTANDING OF DISCHARGE INSTRUCTIONS.
[2018-06-30 16:35] VITALS: BP 196/60
[2018-07-01 15:11] LABS: ANA INTERPRETATION Negative (Negative)
== END 2018-06-30 16:20 | disposition home or self-care (01) | DRG 194 ==
LOC: M.ERS 12:59 → M.TBA-ER 14:44 → M.3W 14:44
PROVIDERS: Internal Medicine; Internal Medicine Gastroenterology; Physician Assistant; ADMIT Internal Medicine
DX: J15.9 Unspecified bacterial pneumonia (principal); E44.0 Moderate protein-calorie malnutrition; J44.0 Chronic obstructive pulmonary disease with (acute) lower respiratory infection; F41.9 Anxiety disorder, unspecified; I10 Essential (primary) hypertension; R74.0 Nonspecific elevation of levels of transaminase and lactic acid dehydrogenase [LDH]; K21.9 Gastro-esophageal reflux disease without esophagitis; Z79.899 Other long term (current) drug therapy; Z88.1 Allergy status to other antibiotic agents; Z90.49 Acquired absence of other specified parts of digestive tract; Z87.891 Personal history of nicotine dependence; Z88.8 Allergy status to other drugs, medicaments and biological substances; Z68.26 Body mass index [BMI] 26.0-26.9, adult

== ENCOUNTER 2018-08-02 14:19 | Inpatient (IN) | payer MEDICARE ==
[~2018-08-02] VITALS: Ht 160 cm; Wt 63.5 kg
[~2018-08-02 14:19] MED LIST changes: +CEFDINIR300 MG PO; +FLONASE 0.05%50 MCG NASAL
[2018-08-02 14:27] VITALS: BP 149/55
[2018-08-02 14:54] LABS: ABSOLUTE EOSINOPHILS 0.1 thou/uL (0.0-0.7); ABSOLUTE LYMPHOCYTES 1.9 thou/uL (0.8-5.3); ABSOLUTE MONOCYTES 0.5 thou/uL (0.0-1.2); ABSOLUTE NEUTROPHILS 4.5 thou/uL (1.6-8.1); BASOPHILS 0.6 %; EOSINOPHILS 0.9 %; HEMATOCRIT 39.9 % (37.0-47.0); HEMOGLOBIN 13.4 gm/dL (12.0-15.0); LYMPHOCYTES 27.4 %; MCHC 33.6 g/dL (28.0-37.0); MCV 95.1 fL (80.0-100.0); MONOCYTES 7.4 %; MPV 7.6 fl. (7.2-11.1); NUCLEATED RBCS 0 /100WBC; PLATELET COUNT* 190 thou/uL (150-400); POLYS 63.7 %; RDW-CV 13.3 % (10.5-14.5)
[2018-08-02 14:59] LABS: ANION GAP 11 mmol/L (7-16); BUN 12 mg/dL (7-18); CHLORIDE 102 mmol/L (98-107); CO2 28 mmol/L (21-32); CREATININE 0.9 mg/dL (0.6-1.3); GLUCOSE 89 mg/dL (70-99); POTASSIUM 3.4 mmol/L (3.5-5.1); SODIUM 141 mmol/L (136-145)
[2018-08-02 15:06] LABS: ALBUMIN 3.9 g/dL (3.4-5.0); ALKALINE PHOSPHATASE 87 U/L (46-116); LIPASE 117 U/L (73-393); MAGNESIUM 1.3 mg/dL (1.8-2.4); SGOT 25 U/L (15-37); SGPT 22 U/L (30-65); TOTAL BILIRUBIN 1.2 mg/dL (<0.1-1.0); TOTAL PROTEIN 7.1 g/dL (6.4-8.2); TROPONIN-I LEVEL <0.06 ng/mL (<0.06)
[2018-08-02 17:52] VITALS: BP 105/30
[2018-08-02 18:10] VITALS: BP 95/35
[2018-08-02 20:00] VITALS: BP 120/70
[2018-08-03 00:17] VITALS: BP 111/53
[2018-08-03 03:59] VITALS: BP 92/38
[2018-08-03 06:06] LABS: MAGNESIUM 2.9 mg/dL (1.8-2.4)
[2018-08-03 06:08] LABS: POTASSIUM 4.4 mmol/L (3.5-5.1)
[2018-08-03 08:00] VITALS: BP 131/51
[2018-08-03 12:31] VITALS: BP 121/58
[2018-08-03 13:54] VITALS: BP 121/58
[2018-08-03] MEDS ORDERED: SINGULAIR 10 MG10 M1 PO (13:54)
[2018-08-03] MEDS ORDERED: TOPICAINE 5113 GM TOP (14:00)
[2018-08-03] MEDS ORDERED: [UNRECOGNIZED DRUG - OTHER] TOP (14:01)
--- NOTE | 2018-08-03 16:25 | EKG ---
[place] [address] ELECTROCARDIOGRAM REPORT Name: BRENDEN EASTON Room: [address] ADM IN .R.#: [id number] Admission: 08/02/18 Attend Phys: Analy Lyn MD Discharge: Date of : 37 Report #: [id number] THIS REPORT FOR: //name// [facility] ED Test Date: 2018-08-02 Test Time: 14:28:26 Pat Name: BRENDEN EASTON Department: Room: [facility] Gender: F Laundry Route Driver: : 1935 Requested By: Gael Dale Order Number: [id number] MD: Sukhjinder Vincent Measurements Intervals [place] Rate: 65 P: 7 [place]: 187 QRS: -13 QRSD: 94 T: 59 QT: 422 QTc: 439 Interpretive Statements Sinus rhythm Probable anterior infarct, old Compared to ECG 06/28/2018 20:40:11 Myocardial infarct finding now present Sinus arrhythmia no longer present ST (T wave) deviation no longer present Electronically Signed On 08-03-2018 16:25:16 ELEMENTARY SCHOOL SOCIAL WORKER by Sukhjinder Vincent [email or web address] <ELECTRONICALLY SIGNED> By: Sukhjinder Vincent MD, [facility] 08/03/18 1625 1428 1428 Sukhjinder Vincent MD, [facility] /EPI
[2018-08-03 17:00] VITALS: BP 141/61
== END 2018-08-03 18:45 | disposition home health service (06) | DRG 313 ==
LOC: M.ERS 14:19 → M.TBA-ER 16:02 → M.2W 16:02
PROVIDERS: Emergency Medicine Emergency Medical Services; ADMIT Internal Medicine
DX: R07.89 Other chest pain (principal); D80.1 Nonfamilial hypogammaglobulinemia; I47.2 Ventricular tachycardia; J32.9 Chronic sinusitis, unspecified; G89.29 Other chronic pain; M54.9 Dorsalgia, unspecified; E11.9 Type 2 diabetes mellitus without complications; E78.5 Hyperlipidemia, unspecified; I10 Essential (primary) hypertension; E83.42 Hypomagnesemia; Z23 Encounter for immunization; Z88.1 Allergy status to other antibiotic agents; Z88.8 Allergy status to other drugs, medicaments and biological substances; Z79.51 Long term (current) use of inhaled steroids; Z79.899 Other long term (current) drug therapy; Z87.891 Personal history of nicotine dependence

== ENCOUNTER → 2018-12-02 | Outpatient (CLI) | payer MEDICARE, OTHER, MEDICAID ==
[~2018-12-02] MED LIST changes: +SINGULAIR 10 MG10 M1 PO; +TOPICAINE 5113 GM TOP; +[UNRECOGNIZED DRUG - OTHER] TOP
== END ==
LOC: M.NUC 10:52
DX: Z12.31 Encounter for screening mammogram for malignant neoplasm of breast (principal); M17.0 Bilateral primary osteoarthritis of knee

== ENCOUNTER → 2018-12-30 | Outpatient (CLI) | payer MEDICARE, MEDICAID ==
--- NOTE | ~2018-12-30 | SLEEP ---
[address] [address] SLEEP STUDY REPORT Name: BRENDEN EASTON Room: [facility]#: [id number] Admission: 12/30/18 Attend Phys: Raphael Coley DO Discharge: Date of : 37 Report #: [id number] THIS REPORT FOR: //name// CC: Daxa Coley This study has been reviewed in its entirety by a board certified sleep specialist DATE OF SERVICE: 12/30/2018 REFERRED BY: Raphael Coley DO. HISTORY: The patient is 83 years old who weighs 132 pounds with a BMI of 26.7. The patient underwent diagnostic sleep study performed at [facility]. During the night of the study, the patient spent 452 minutes in bed and slept for 280 minutes with a low sleep efficiency of 62%. Sleep latency was 29 minutes with a REM latency of 118 minutes. Overall, sleep architecture showed normal stage 1 sleep, increased stage 2 sleep, normal slow wave sleep and normal REM sleep. During the night of the study, the patient had 1 obstructive apnea, no mixed or central apneas and 14 hypopneas. The patient's apnea hypopnea index was 3.2 per hour. The patient's REM index was 2.5 per hour and a supine index of less than 5 per hour. Nocturnal oximetry study revealed an average oxygen saturation of 93% with the lowest of 84%. Only 1.7 minutes were spent in oxygen saturation of less than 89%. EKG monitoring did not reveal any significant arrhythmias. Average heart rate was 56 beats per minute with a maximum of 71 beats per minute. PLMS were seen at an index of 21 per hour, but only 2.8 per hour caused EEG arousals. Due to low AHI, the patient did not meet the split night criteria for CPAP initiation. IMPRESSION: 1. No clinically significant sleep disordered breathing. The patient's AHI for the entire night was only 3.2 per hour. Mild positional change noticed. 2. No clinically significant nocturnal hypoxia. 3. Mild PLMs without any significant EEG arousals. This does not need to be treated unless the patient has symptoms of restless legs during the day. RECOMMENDATIONS: [place] [address] SLEEP STUDY REPORT Name: BRENDEN EASTON Room: [facility]#: [id number] Admission: 12/30/18 Attend Phys: Raphael Coley DO Discharge: Date of : 37 Report #: [id number] 1. The patient did not meet the criteria for CPAP initiation. 2. Avoid supine sleep. 3. Avoid AUTOMATIC BLOCKER depressants. 4. Weight loss to ideal body weight. By: 1133 133Janina Ramachandran MD /yasmeen
== END ==
LOC: M.SLEEPLAB 19:54
DX: G47.30 Sleep apnea, unspecified (principal); R63.4 Abnormal weight loss

== ENCOUNTER 2019-02-02 16:56 | Emergency (ER) | payer MEDICARE, MEDICAID ==
[~2019-02-02] VITALS: Ht 149.9 cm; Wt 59.9 kg
[2019-02-02] MEDS ORDERED: NORCO 5-325 TA1 EAC1 PO (18:56)
[2019-02-02] MEDS ORDERED: TORADOL 10 MG T10 MG PO (18:56)
[2019-02-02 19:16] LABS: URINE BILIRUBIN NEGATIVE (Negative); URINE BLOOD NEGATIVE (Negative); URINE CLARITY CLEAR; URINE COLOR STRAW; URINE GLUCOSE-RANDOM NEGATIVE (Negative); URINE KETONES NEGATIVE (Negative); URINE LEUKOCYTES-REFLEX NEGATIVE (Negative); URINE NITRITE-REFLEX NEGATIVE (Negative); URINE PROTEIN NEGATIVE (Negative); URINE SPECIFIC GRAVITY <= 1.005 (1.005-1.030); URINE UROBILINOGEN 0.2 E.U./dl (0.2-1.0)
[2019-02-02 19:33] VITALS: BP 132/60
== END 2019-02-02 19:33 | disposition home or self-care (01) ==
LOC: M.ERS 16:56
PROVIDERS: Personal Emergency Response Attendant
DX: G89.29 Other chronic pain (principal); M79.671 Pain in right foot; R10.30 Lower abdominal pain, unspecified; Z90.89 Acquired absence of other organs; Z88.1 Allergy status to other antibiotic agents; Z88.8 Allergy status to other drugs, medicaments and biological substances; Z98.890 Other specified postprocedural states

== ENCOUNTER 2019-03-22 06:55 | Inpatient (IN) | payer MEDICARE, MEDICAID ==
[2019-03-04 09:16] LABS: ABSOLUTE EOSINOPHILS 0.1 thou/uL (0.0-0.7); ABSOLUTE LYMPHOCYTES 1.6 thou/uL (0.8-5.3); ABSOLUTE MONOCYTES 0.5 thou/uL (0.0-1.2); ABSOLUTE NEUTROPHILS 3.8 thou/uL (1.6-8.1); BASOPHILS 0.8 %; EOSINOPHILS 2.3 %; HEMATOCRIT 38.5 % (37.0-47.0); HEMOGLOBIN 13.1 gm/dL (12.0-15.0); LYMPHOCYTES 26.3 %; MCH 32.6 pg (26.0-34.0); MCHC 33.9 g/dL (28.0-37.0); MCV 96.1 fL (80.0-100.0); MONOCYTES 8.7 %; MPV 7.4 fl. (7.2-11.1); NUCLEATED RBCS 0 /100WBC; PLATELET COUNT* 162 thou/uL (150-400); POLYS 61.9 %; RBC 4.01 mil/uL (4.20-5.00); RDW-CV 13.3 % (10.5-14.5); WBC 6.1 thou/uL (4.0-11.0)
[2019-03-04 09:32] LABS: ALBUMIN 3.5 g/dL (3.4-5.0); CALCIUM 9.8 mg/dL (8.5-10.1); CREATININE 0.8 mg/dL (0.6-1.3); POTASSIUM 4.2 mmol/L (3.5-5.1); TOTAL BILIRUBIN 0.6 mg/dL (<0.1-1.0); TOTAL PROTEIN 6.5 g/dL (6.4-8.2)
--- NOTE | 2019-03-04 10:15 | EKG ---
[place] [address] ELECTROCARDIOGRAM REPORT Name: BRENDEN EASTON Room: PRE IN [facility]#: [id number] Admission: Attend Phys: Raphael Coley DO Discharge: Date of : 37 Report #: [id number] THIS REPORT FOR: //name// [facility] Test Date: 2019-03-04 Test Time: 09:18:31 Pat Name: BRENDEN EASTON Department: Room: Gender: F Mechanical Development Engineer: : 1935 Requested By: Raphael Coley Order Number: [id number] Reading MD: Tre Perez Measurements Intervals [place] Rate: 57 P: 0 NV: 186 QRS: 5 QRSD: 98 T: 67 QT: 450 QTc: 439 Interpretive Statements Sinus rhythm Anteroseptal infarct, old Minimal ST depression, lateral leads Baseline wander in lead(s) V5 Compared to ECG 08/02/2018 14:28:26 ST (T wave) deviation now present Myocardial infarct finding still present Electronically Signed On 03-04-2019 10:15:07 CDT by Tre Perez [email or web address] <ELECTRONICALLY SIGNED> By: Tre Perez MD, [facility] 03/04/19 1015 7 7 Tre Perez MD, [facility] /EPI
[2019-03-04 10:17] LABS: APTT 27.6 Seconds (25.0-31.3); INR 1.1; PROTIME 10.8 Seconds (9.20-11.50)
[2019-03-04 10:21] LABS: ESR (SEDRATE) 5 mm/hr (0-30)
[2019-03-10 02:07] LABS: GLYCOHEMOGLOBIN (HGB A1C) 5.8 % (4.8-5.6)
[~2019-03-22] VITALS: Ht 149.9 cm; Wt 58.5 kg
[~2019-03-22 06:55] MED LIST changes: +ALLEGRA ALLERG180 MG PO; +CHOLESTYRAMINE L4 GM PO; +COZAAR100 MG PO; +GLUCOPHAGE1000 MG PO; +IMODIUM A-D2 M1 PO; +METHOCARBAMOL500 M2 PO; +NORCO 5-325 TA1 EAC1 PO; +PREVAGEN PO; +PROZAC20 MG PO; +TORADOL 10 MG T10 MG PO
[2019-03-22 21:00] VITALS: BP 139/69
[2019-03-23] VITALS: BP 151/74
[2019-03-23 00:32] LABS: URINE BILIRUBIN NEGATIVE (Negative); URINE BLOOD NEGATIVE (Negative); URINE CLARITY CLEAR; URINE COLOR STRAW; URINE GLUCOSE-RANDOM 1+ (Negative); URINE KETONES NEGATIVE (Negative); URINE LEUKOCYTES-REFLEX NEGATIVE (Negative); URINE NITRITE-REFLEX NEGATIVE (Negative); URINE PROTEIN NEGATIVE (Negative); URINE UROBILINOGEN 0.2 E.U./dl (0.2-1.0)
[2019-03-23 04:00] VITALS: BP 121/56
[2019-03-23 04:06] LABS: HEMATOCRIT 35.1 % (37.0-47.0); HEMOGLOBIN 11.6 gm/dL (12.0-15.0)
--- NOTE | 2019-03-23 04:41 | NUR ---
PATIENT HAS REMAINED ALERT AND ORIENTED X 4 THROUGHOUT THE SHIFT AND RESTING QUIETLY ON HOURLY ROUNDS. UP TO BSC TO VOID BUT UNABLE TO DRIBBLE ONLY A BIT WITH PROLONGED SITTING. BLADDER SCAN SHOWING 858 ML. ESCOBAR CATHETER 16 FR INSERTED PER ORDER WITHOUT DIFFICULTY. IMMEDIATE LARGE RETURN. TRANSFERING WITH MIN ASSIST, GAIT BELT AND WALEKR. DRESSING RIGHT KNEE CLEAN AND DRY WITH ICE PACK OVERNIGHT PROVIDED. BILAT RODOLFO HOSE AND SCD'S IN PLACE. VITAL SIGNS STABLE WITH O2 AT 2L/MIN AND CONTINUOUS CAPNOGRAPHY. BED ALARM ON FOR SAFETY. CONTINUE TO MONITOR.
--- NOTE | 2019-03-23 07:03 | OP ---
[address] [address] OPERATIVE REPORT Name: BRENDEN EASTON Room: [address] IN M.R.#: [id number] Admission: 03/22/19 Attend Phys: Kelvin Rojas Discharge: Date of : 37 Report #: [id number] THIS REPORT FOR: //name// CC: Daxa Loyola DATE OF SERVICE: 03/22/2019 PREOPERATIVE DIAGNOSIS: Advanced degenerative joint disease of the right knee. POSTOPERATIVE DIAGNOSIS: Advanced degenerative joint disease of the right knee. OPERATION PERFORMED: Right total knee arthroplasty. SURGEON: Raphael Coley DO GUIDE EXCURSION: Kyle Calero DO and Fadia Morales PA-C. IMPLANTS: The [employer] Legion system was used with the following components: 1. A size 3 posterior stabilized femoral component. 2. A size 2 tibial baseplate. 3. A size 29 mm oval patellar component. 4. A size 10 mm thickness Legion posterior stabilized articular insert. 5. One bag of Palacos bone cement. ANESTHESIA: General plus local infiltration. ANTIBIOTICS: 2 g IV Ancef. Also, 2 g of vancomycin powder were used topically during the procedure. ESTIMATED BLOOD LOSS: 125 mL. DRAINS: None. SPECIMENS: None. COMPLICATIONS: None. CONDITION: Stable. DISPOSITION: PACU to Med/Surg floor. OPERATIVE INDICATIONS: The patient is a pleasant 83-year-old female who have been followed in the orthopedic clinic regarding her longstanding right knee [facility] [address] [place] [address] OPERATIVE REPORT Name: JEMMABRENDEN ASHLEY Room: [address] IN M.R.#: [id number] Admission: 03/22/19 Attend Phys: Kelvin Rojas Discharge: Date of : 37 Report #: [id number] pain. She had attempted and failed conservative treatment over the last year, including activity modifications, physical therapy, anti-inflammatory medications by mouth and intra-articular steroid injections. Despite trying all these things, she continued to have significant pain, which was unrelenting and interfering with her quality of life and activities of daily living. Therefore, we did discuss a right total knee arthroplasty. The risks, indications, and treatment alternatives were discussed in detail with the patient and her informed consent was signed. DESCRIPTION OF PROCEDURE: The patient was identified in the preoperative holding area where the right knee was confirmed to be the operative site by the patient and marked. She was returned to the operating suite and placed on the operating table in supine position where general anesthesia was then induced. A well-padded pneumatic tourniquet was placed on the right proximal thigh. Of note, this was inflated at 295 mmHg throughout the procedure for a total of 40 minutes. The right lower extremity was then sterilely prepped and draped free in the usual fashion. A time-out was then performed to confirm that our safety checklist have been completed and all the OR personnel was in agreement. A standard midline incision was marked out over the anterior aspect of the knee and a 20 blade scalpel was used to sharply dissect through the skin and subcutaneous tissue down to the level of the extensor mechanism. A new blade was then used to make the standard medial parapatellar arthrotomy. A subperiosteal layer was developed on the proximal tibia. The patella was then everted and the knee was flexed. The infrapatellar fat pad was excised. The cutting block was then placed on the distal femur and pinned into position. The reciprocating saw was then used to make the distal femur cut. The appropriate size 5-in-1 cutting block was then impacted on to the distal femur and the cuts were made sequentially through the capture block. Attention was then taken to the proximal tibia cut and the premade cutting block was found to sit appropriately on the proximal tibia. This was pinned into position. The proximal tibial cut was then made with a reciprocating saw through the capture block. The bony wafers were then removed. We then confirmed that our spacer block was the appropriate size and it was. The knee was found to be well balanced as well. The knee was taken back to flexion. The appropriate tibial baseplate was pinned into position. We confirmed the appropriate rotation and alignment with a drop siomara. The appropriate size femoral component was then impacted into position. The 9 mm articular insert was then trialled. There was a slight laxity in both flexion and extension. Therefore, we did proceed with a 10 mm articular spacer, which did give us appropriate tensioning and balancing in all planes. Attention was taken to the patella. There were significant degenerative changes. Therefore, we did proceed with resurfacing and the Christianne reaming system was utilized to ream the patella down to a 14 mm thickness. The patella was then sized and the 3 peg holes were drilled through the guide. Patellar button was placed and placed through a full range of motion, found to be tracking appropriately. The trial components were removed except for the tibial component, which was reamed and punched to prepare [place] [address] OPERATIVE REPORT Name: BRENDEN EASTON Room: [address] IN M.R.#: [id number] Admission: 03/22/19 Attend Phys: Kelvin Rojas Discharge: Date of : 37 Report #: [id number] prior to being removed. All the trial components were now removed and the knee was copiously irrigated. The bone cement was mixed on the back table and applied to the undersurface of the final components. The anesthetic cocktail was injected into the posterior capsular structures as well as the surrounding periosteum at this time. The bone cement was pressurized by hand into the interstitial of the bone and the final components were implanted into position beginning with the tibia, followed by the femur and finally the patella, which was clamped into position. All of the excess bone cement was removed. The 10 mm articular insert was once again trialed and found to have appropriate balance in all planes. Therefore, we did proceed with exchanging this for the final articular insert, which was locked into position. The knee was finally taken through one more range of motion and found to have 0-135 degrees of motion with excellent stability in all planes. The knee was placed in 90 degrees of flexion. A layered closure was then performed beginning with a #1 Vicryl suture in a voteaz-ed-cvicy fashion on the capsular layer. This was then oversewn with a large Stratafix suture throughout the extensor mechanism. The subcutaneous layer was then reapproximated with 2-0 Monocryl sutures in a buried fashion. The subcuticular layer was then reapproximated with a running 3-0 Stratafix suture. Exofin skin glue was applied and allowed to dry. The sterile Mepilex bandage was then applied followed by a thigh high RODOLFO hose. The patient was awakened from general anesthetic and transferred to the PACU in stable condition with no apparent complications. Sponge and needle counts were reported correct per the OR personnel. ATTESTATION: Dr. Raphael Coley was present for all the vital portions of the procedure. <ELECTRONICALLY SIGNED> By: Henry Crum DO 03/23/19 0703 1307 [id number] Coley DO /nt
[2019-03-23 08:00] VITALS: BP 129/68
--- NOTE | 2019-03-23 13:50 | NUR ---
SW met with pt to complete initial assessment, introduce self, and SW role. Pt was having difficulty focusing and having any sort of discussion with SW due to pt experiencing pain. Pt kept crying out that she hurt; SW asked about pain medications and ice pack, pt said she had pain medicine a while ago and she said that the ice pack did not help. From previous record, pt lives at home alone and has used [facility] in the past. Pt has a RW. Pt uses [facility] pharmacy in [place]. Pt has in home care hx with [facility]. SW left a SNF list in pt room for when pt possible ready to discuss dc planning as pre op worksheet indicated pt might need SNF at dc. SW to continue to follow to assist with safe dc planning.
[2019-03-23 17:11] LABS: CALCIUM 8.8 mg/dL (8.5-10.1); CREATININE 0.7 mg/dL (0.6-1.3); MAGNESIUM 1.5 mg/dL (1.8-2.4); POTASSIUM 4.9 mmol/L (3.5-5.1)
--- NOTE | 2019-03-23 18:43 | NUR ---
ASSUMED CARE OF PATIENT TA APPROX 0730. ALERT AND ORIENTED X4. ASSESSMENT COMPLETED AND CHARTED. VSS ON ROOM AIR. PATIENT HAD UNCONTROLLED PAIN AFTER BEING UP IN THE CHAIR THIS MORNING. TRIED TWO DOSES OF OXY IR WITHOUT RELIEF. CALLED DR RONQUILLO AND WAS GIVEN ORDERS FOR TRAMADOL, LIDOCAINE PATCH AND VENOUS DOPPLER OF RIGHT LEG. DOPPLER CAME BACK UNREMARKABLE FOR DVT. TRAMADOL, LIDOCAINE PATCH AND ICE WERE NOT EFFECTIVE FOTR PAIN MANAGEMENT. ORTHO PAGED AND GIVEN ORDER FOR DILAUDID IV. PATIENT STATED THAT SHE FELT LIKE HER PAIN WAS FROM MUSCLE SPASMS, DR RONQUILLO PAGED AGAIN AND ORDER GIVEN FOR FLEXERIL AND HEATING PAD. PATIENT FINALLY GAINED RELIEF AFTER BEING GIVEN DILAUDID, FLEXERIL AND HEAT APPLICATION. PATIENT UP WITH WALKER AND GAIT BELT. FALL PRECAUTIONS IN PLACE. CALL LIGHT WITHIN REACH. HOURLY ROUNDS COMPLETED. WILL CONTINUE TO MONITOR.
[2019-03-23 21:00] VITALS: BP 119/46
[2019-03-24 04:00] VITALS: BP 168/65
--- NOTE | 2019-03-24 04:53 | NUR ---
PATIENT HAS REMAINED ALERT AND ORIENTED X 4 THROUGHOUT THE SHIFT AND RESTING QUIETLY ON HOURLY ROUNDS. PATIENT RECEIVED ORAL PAIN MEDICATION SHIFT CHANGE AND THEN REFUSED ALL FURTHER OFFERS OF PAIN MEDICATION UNTIL 0400. VITAL SIGNS STABLE. DRESSING RIGHT KNEE CLEAN AND DRY. REFUSED RODOLFO HOSE. BILAT CALF SCD'S ON. ESCOBAR PATENT TO DEPENDENT DRAINAGE, ADEQUATE URINE OUTPUT. BED ALARM ON FOR SAFETY. CONTINUE TO MONITOR.
[2019-03-24 05:20] LABS: HEMATOCRIT 33.1 % (37.0-47.0); HEMOGLOBIN 11.4 gm/dL (12.0-15.0)
[2019-03-24 08:30] VITALS: BP 114/43
--- NOTE | 2019-03-24 15:17 | NUR ---
PT.UP IN CHAIR EARLIER. DISCUSSED SNFS WITH HER. SHE STARTED HAVING SPASMS IN HER HIP AGAIN. SHE SAID HER NIECE WOULD BE HERE ABOUT NOON. CHECKED IN ABOUT NOON. SHE SAID SHE WOULD BE HERE AT 3. PT.SEEMS CONFUSED AT TIMES. LINGRN HAD SPOKEN WITH NIECE ON PHONE AND DARINEL REQUESTED I CALL HER. SPOKE WITH SARAH DE DIOS. SHE SAID HER MOTHER HAD BEEN TO [facility] LAST YEAR. SHE WOULD THINK HER AUNT WOULD LIKE IT THERE. HER MOM HAD ALSO BEEN TO [facility]. SARAH DID NOT THINK SHE COULD VISIT PT. THERE HER MOM THERE. DISCUSSED WITH PT. SHE SAID [facility] WOULD BE FINE. REFERRAL FAXED TO [facility]. PT.SHOULD BE READY FOR DISCHARGE TOMORROW.
[2019-03-24 16:00] VITALS: BP 131/51
--- NOTE | 2019-03-24 18:10 | NUR ---
ASSUMED CARE OF PATIENT AT APPROX 0730. ALERT AND ORIENTED X4. ASSESSMENT COMPLETED AND CHARTED. VSS ON ROOM AIR. COMPLAINTS OF PAIN AND MUSCLE SPASMS, MANAGED WITH ORAL, IV MEDICATIONS, AND HEAT APPLICATION. PATIENT UP WITH GAIT BELT AND WALKER TO USE BEDSIDE COMMODE. PATIENT WANTED TO GO BACK TO BED RATHER STAY IN THE CHAIR DUE TO HER PAIN AND SPASMS. ESCOBAR DISCONTINUED AND STARTOING VOIDING TRIAL, PATIENT HAS NOT URINATED OF THIS NOTE. FALL PRECAUTIONS IN PLACE. CALL LIGHT WITHIN REACH. HOURLY ROUNDS COMPLETED. WILL CONTINUE TO MONITOR.
[2019-03-24 21:00] VITALS: BP 139/54
[2019-03-25] VITALS: BP 170/57
[2019-03-25 04:00] VITALS: BP 166/55
[2019-03-25 05:33] LABS: URINE BILIRUBIN NEGATIVE (Negative); URINE BLOOD TRACE (Negative); URINE CLARITY CLEAR; URINE COLOR YELLOW; URINE GLUCOSE-RANDOM NEGATIVE (Negative); URINE KETONES NEGATIVE (Negative); URINE LEUKOCYTES-REFLEX NEGATIVE (Negative); URINE NITRITE-REFLEX NEGATIVE (Negative); URINE PROTEIN NEGATIVE (Negative); URINE SPECIFIC GRAVITY <= 1.005 (1.005-1.030); URINE UROBILINOGEN 0.2 E.U./dl (0.2-1.0)
--- NOTE | 2019-03-25 06:33 | NUR ---
Alert and oriented x 4 with some slight possible forgetfulness. R knee post op island/silver,mepilex dressing is clean dry and intact. She refuses ice pack to her knee and is using an aqua K heating pad for the pain. She is wearing bilateral tedhose and SCD's are on. Pain meds given x 2 and milk of mag at bedtime. Nielsen cath was discontinued at 1800. She was voiding small amounts throughout the shift but frequently, beginning around 2200. Around 0200 she was bladderscanned post-void and she had 847mls. Straight cath done and 830 mls was obtained. UA sent and results look normal.
[2019-03-25 07:50] VITALS: BP 142/55
[2019-03-25] MEDS ORDERED: COLACE 100 MG100 MG PO (08:06)
[2019-03-25] MEDS ORDERED: ELIQUIS5 MG PO (08:06)
[2019-03-25] MEDS ORDERED: OXYCODONE HCL 55 MG PO (08:06)
[2019-03-25] MEDS ORDERED: XANAX 0.25 MG0.25 MG PO (08:06)
[2019-03-25] MEDS ORDERED: NAPROSYN500 MG PO (08:06)
[2019-03-25] MEDS ORDERED: FLOMAX0.4 MG PO (08:06)
[2019-03-25] MEDS ORDERED: METAMUCIL PACK3.4 GM PO (08:06)
[2019-03-25] MEDS ORDERED: ACETAMINOPHEN325 M1 PO (08:06)
[2019-03-25] MEDS ORDERED: CYCLOBENZAPRINE10 MG PO (08:06)
[2019-03-25] MEDS ORDERED: LIDOPATCH1 EACH TOP (08:06)
[2019-03-25] MEDS ORDERED: TRAMADOL 50 MG50 MG PO (08:15)
--- NOTE | 2019-03-25 10:30 | NUR ---
NOTIFIED RICKY OF DISCHARGE ORDERS. SHE SAID THEIR [employer] [facility]AN CAN PICK PT.UP BETWEEN [phone]. FAXED DISCHARGE SUMMARY AND ORTHO ORDERS TO HER, AND INFORMED HER PT.WAS A [facility] PT. CHART COPIED TO GO WITH PT. LINGRN WILL CALL REPORT. INFORMED PT.OF TRANSFER TIME. ASSURED HER CHILD CARE EDUCATION COORDINATOR WOULD HELP HER GET DRESSED AND PACK UP HER PERSONAL ITEMS.
--- NOTE | 2019-03-25 11:40 | NUR ---
CHECKED COPAY FOR TAI THAT WAS CALLED INTO PHARMACY YESTERDAY. TECH AT [facility] SAID IT WOULD BE $40. WILL INFORM PT.
[2019-03-25 13:32] VITALS: BP 142/55
--- NOTE | 2019-03-25 16:07 | NUR ---
ASSUMED CARE OF PATIENT AT APPROX 0730. ALERT AND ORIENTED X4. ASSESSMENT COMPLETED AND CHARTED. PAIN MANAGED WITH ORAL OXY, NAPROXEN, AND FLEXERIL. PATIENT ABLE TO VOID WITHOUT ISSUE. MEPILEX TO RIGHT KNEE IS CLEAN, DRY, AND INTACT. NO DRAINAGE ON DRESSING. PATIENT UP WITH GAIT BELT AND WALKER TO THE BATHROOM. PATIENT DISCHARGED AT 1345 WITH ALL PERSONAL BELONGINGS, PRESCRIPTIONS AND DISCHARGE PACKET. TRANSPORTED TO [facility] VIA WHEELCHAIR VAN.
== END 2019-03-25 13:45 | DRG 470 ==
LOC: M.PRE 06:55 → M.ORTHSURG 09:09 → M.TBA 09:09 → M.ORTHSURG 15:46
PROVIDERS: Internal Medicine; Orthopaedic Surgery; ADMIT Internal Medicine
PROC: 0SRC0J9 Replacement of Right Knee Joint with Synthetic Substitute, Cemented, Open Approach (ICD-10-PCS; principal; 2019-03-22)
DX: M17.11 Unilateral primary osteoarthritis, right knee (principal); I10 Essential (primary) hypertension; Z96.652 Presence of left artificial knee joint; F32.9 Major depressive disorder, single episode, unspecified; R33.9 Retention of urine, unspecified; G89.29 Other chronic pain; Z88.1 Allergy status to other antibiotic agents; Z88.8 Allergy status to other drugs, medicaments and biological substances; Z90.49 Acquired absence of other specified parts of digestive tract; Z87.891 Personal history of nicotine dependence; Z79.891 Long term (current) use of opiate analgesic; Z79.899 Other long term (current) drug therapy

== ENCOUNTER 2019-04-23 11:13 | Emergency (ER) | payer MEDICARE, MEDICAID ==
[~2019-04-23] VITALS: Ht 149.9 cm; Wt 55.8 kg
[~2019-04-23 11:13] MED LIST changes: +ACETAMINOPHEN325 M1 PO; +COLACE 100 MG100 MG PO; +CYCLOBENZAPRINE10 MG PO; +ELIQUIS5 MG PO; +FLOMAX0.4 MG PO; +LIDOPATCH1 EACH TOP; +METAMUCIL PACK3.4 GM PO; +NAPROSYN500 MG PO; +OXYCODONE HCL 55 MG PO
[2019-04-23 11:58] LABS: ABSOLUTE BASOPHILS 0.1 thou/uL (0.0-0.2); ABSOLUTE EOSINOPHILS 0.1 thou/uL (0.0-0.7); ABSOLUTE LYMPHOCYTES 1.4 thou/uL (0.8-5.3); ABSOLUTE MONOCYTES 0.6 thou/uL (0.0-1.2); ABSOLUTE NEUTROPHILS 5.8 thou/uL (1.6-8.1); BASOPHILS 0.8 %; EOSINOPHILS 1.8 %; HEMATOCRIT 37.2 % (37.0-47.0); HEMOGLOBIN 12.5 gm/dL (12.0-15.0); LYMPHOCYTES 17.5 %; MCH 32.9 pg (26.0-34.0); MCHC 33.5 g/dL (28.0-37.0); MCV 98.2 fL (80.0-100.0); MONOCYTES 7.7 %; MPV 7.4 fl. (7.2-11.1); NUCLEATED RBCS 0 /100WBC; PLATELET COUNT* 208 thou/uL (150-400); POLYS 72.2 %; RBC 3.79 mil/uL (4.20-5.00); RDW-CV 14.9 % (10.5-14.5); WBC 8.1 thou/uL (4.0-11.0)
[2019-04-23 12:08] LABS: CALCIUM 9.6 mg/dL (8.5-10.1); CREATININE 0.7 mg/dL (0.6-1.3); POTASSIUM 3.8 mmol/L (3.5-5.1)
[2019-04-23 12:13] LABS: ALBUMIN 3.4 g/dL (3.4-5.0); TOTAL BILIRUBIN 0.6 mg/dL (<0.1-1.0); TOTAL PROTEIN 6.3 g/dL (6.4-8.2)
[2019-04-23 12:40] VITALS: BP 141/59
== END 2019-04-23 12:40 | disposition home or self-care (01) ==
LOC: M.ERS 11:13
PROVIDERS: Nurse Practitioner Family
DX: M25.461 Effusion, right knee (principal); M25.561 Pain in right knee; K59.00 Constipation, unspecified; I10 Essential (primary) hypertension; F32.9 Major depressive disorder, single episode, unspecified; Z90.49 Acquired absence of other specified parts of digestive tract; Z98.890 Other specified postprocedural states; Z88.1 Allergy status to other antibiotic agents; Z88.8 Allergy status to other drugs, medicaments and biological substances; Z96.642 Presence of left artificial hip joint

== ENCOUNTER 2019-07-26 18:52 | Emergency (ER) | payer MEDICARE, MEDICAID ==
[~2019-07-26] VITALS: Ht 149.9 cm; Wt 54.4 kg
[2019-07-26 20:00] LABS: INFLUENZA A ANTIGEN Negative (Negative); INFLUENZA B ANTIGEN Negative (Negative)
[2019-07-26 20:33] LABS: ABSOLUTE LYMPHOCYTES 0.9 thou/uL (0.8-5.3); ABSOLUTE MONOCYTES 0.6 thou/uL (0.0-1.2); ABSOLUTE NEUTROPHILS 4.5 thou/uL (1.6-8.1); BASOPHILS 0.6 %; EOSINOPHILS 0.2 %; HEMATOCRIT 35.9 % (37.0-47.0); HEMOGLOBIN 12.3 gm/dL (12.0-15.0); LYMPHOCYTES 14.8 %; MCHC 34.3 g/dL (28.0-37.0); MCV 93.2 fL (80.0-100.0); MPV 7.7 fl. (7.2-11.1); NUCLEATED RBCS 0 /100WBC; PLATELET COUNT* 127 thou/uL (150-400); POLYS 74.4 %; RBC 3.86 mil/uL (4.20-5.00); RDW-CV 14.6 % (10.5-14.5)
[2019-07-26 20:42] LABS: CALCIUM 8.9 mg/dL (8.5-10.1); CREATININE 0.7 mg/dL (0.6-1.3)
[2019-07-26 20:44] LABS: APTT 30.8 Seconds (25.0-31.3); INR 1.1; PROTIME 11.3 Seconds (9.20-11.50)
[2019-07-26 20:53] LABS: ALBUMIN 3.2 g/dL (3.4-5.0); MAGNESIUM 1.5 mg/dL (1.8-2.4); TOTAL BILIRUBIN 0.7 mg/dL (<0.1-1.0); TOTAL PROTEIN 6.3 g/dL (6.4-8.2)
[2019-07-26] MEDS ORDERED: PREDNISONE 20 M20 M1 PO (21:15)
[2019-07-26] MEDS ORDERED: AUGMENTIN 875-1 EACH PO (21:15)
[2019-07-26] MEDS ORDERED: VENTOLIN HFA 1818 GM INH (21:15)
[2019-07-26 21:22] VITALS: BP 133/57
--- NOTE | 2019-07-27 14:15 | EKG ---
[place] [address] ELECTROCARDIOGRAM REPORT Name: BRENDEN EASTON [id number] Admission: 07/26/19 Attend Phys: Discharge: 07/26/19 Date of : 37 Report #: [id number] THIS REPORT FOR: //name// [facility] ED Test Date: 2019-07-26 Test Time: 19:43:24 Pat Name: BRENDEN EASTON Department: Room: Gender: F Accounts Clerk: ID : [id number] Requested By: Michele John Order Number: [id number] MD: Feng Baig Measurements Intervals [place] Rate: 65 P: 14 [place]: 174 QRS: -20 QRSD: 90 T: 91 QT: 423 QTc: 440 Interpretive Statements Sinus rhythm Anterior infarct, old Compared to ECG 03/04/2019 09:18:31 Myocardial infarct finding still present Electronically Signed On 07-27-2019 14:14:34 SHARPLES MACHINE OPERATOR by Feng Baig [email or web address] <ELECTRONICALLY SIGNED> By: Feng Baig MD, [facility] 07/27/19 1414 194 42 Feng Baig MD, FACC /EPI
== END 2019-07-26 21:29 | disposition home or self-care (01) ==
LOC: M.ERS 18:52
PROVIDERS: Family Medicine; Nurse Practitioner Family
DX: J18.9 Pneumonia, unspecified organism (principal); I10 Essential (primary) hypertension; F32.9 Major depressive disorder, single episode, unspecified; Z90.89 Acquired absence of other organs; Z85.828 Personal history of other malignant neoplasm of skin; Z96.642 Presence of left artificial hip joint; Z90.49 Acquired absence of other specified parts of digestive tract; Z88.1 Allergy status to other antibiotic agents; Z88.8 Allergy status to other drugs, medicaments and biological substances

== ENCOUNTER 2019-08-04 12:44 | Inpatient (IN) | payer OTHER, MEDICAID, SELFPAY ==
[~2019-08-04] VITALS: Ht 149.9 cm; Wt 59.0 kg
[~2019-08-04 12:44] MED LIST changes: +AUGMENTIN 875-1 EACH PO; +PREDNISONE 20 M20 M1 PO
[2019-08-04] MEDS ORDERED: MELATONIN5 MG PO (13:58)
[2019-08-04] MEDS ORDERED: XANAX 0.25 MG0.25 MG PO (13:59)
[2019-08-04] MEDS ORDERED: VITAMIN D32000 UNIT PO (13:59)
[2019-08-04 14:30] VITALS: BP 125/50
[2019-08-04 14:37] LABS: HEMATOCRIT 39.5 % (37.0-47.0); HEMOGLOBIN 13.5 gm/dL (12.0-15.0); MCH 31.3 pg (26.0-34.0); MCHC 34.1 g/dL (28.0-37.0); MCV 91.7 fL (80.0-100.0); MPV 7.8 fl. (7.2-11.1); NUCLEATED RBCS 0 /100WBC; PLATELET COUNT* 260 thou/uL (150-400); RBC 4.31 mil/uL (4.20-5.00); RDW-CV 14.9 % (10.5-14.5); WBC 11.3 thou/uL (4.0-11.0)
[2019-08-04 14:42] LABS: CALCIUM 9.1 mg/dL (8.5-10.1); CREATININE 0.9 mg/dL (0.6-1.3)
[2019-08-04 14:46] LABS: ALBUMIN 3.3 g/dL (3.4-5.0); TOTAL BILIRUBIN 1.1 mg/dL (<0.1-1.0); TOTAL PROTEIN 6.2 g/dL (6.4-8.2)
[2019-08-04 15:13] LABS: ABSOLUTE LYMPHOCYTES 0.7 thou/uL (0.8-5.3); ABSOLUTE MONOCYTES 0.5 thou/uL (0.0-1.2); ABSOLUTE NEUTROPHILS 10.2 thou/uL (1.6-8.1); PLATELET ESTIMATE ADEQUATE
[2019-08-04 20:48] VITALS: BP 134/54
[2019-08-04 21:53] LABS: URINE BILIRUBIN NEGATIVE (Negative); URINE BLOOD NEGATIVE (Negative); URINE CLARITY CLEAR; URINE COLOR YELLOW; URINE GLUCOSE-RANDOM NEGATIVE (Negative); URINE KETONES 1+ (Negative); URINE LEUKOCYTES NEGATIVE (Negative); URINE NITRITE NEGATIVE (Negative); URINE PROTEIN TRACE (Negative); URINE UROBILINOGEN 0.2 E.U./dl (0.2-1.0)
[2019-08-05 08:20] VITALS: BP 118/41
[2019-08-05 09:45] VITALS: BP 126/93
[2019-08-05 16:49] VITALS: BP 142/59
[2019-08-05 19:30] VITALS: BP 148/64
[2019-08-06 04:23] LABS: HEMATOCRIT 34.5 % (37.0-47.0); HEMOGLOBIN 11.9 gm/dL (12.0-15.0); MCH 31.8 pg (26.0-34.0); MCHC 34.4 g/dL (28.0-37.0); MCV 92.4 fL (80.0-100.0); MPV 7.8 fl. (7.2-11.1); RBC 3.74 mil/uL (4.20-5.00); RDW-CV 15.2 % (10.5-14.5); WBC 13.8 thou/uL (4.0-11.0)
[2019-08-06 04:45] LABS: CALCIUM 8.9 mg/dL (8.5-10.1); CREATININE 0.8 mg/dL (0.6-1.3); MAGNESIUM 1.9 mg/dL (1.8-2.4); POTASSIUM 4.2 mmol/L (3.5-5.1)
[2019-08-06 09:05] VITALS: BP 140/65
[2019-08-06 15:45] VITALS: BP 133/62
[2019-08-06 19:30] VITALS: BP 138/63
[2019-08-07 04:03] LABS: HEMATOCRIT 35.9 % (37.0-47.0); HEMOGLOBIN 12.1 gm/dL (12.0-15.0); MCH 31.3 pg (26.0-34.0); MCHC 33.7 g/dL (28.0-37.0); MCV 92.8 fL (80.0-100.0); RBC 3.87 mil/uL (4.20-5.00); RDW-CV 15.3 % (10.5-14.5); WBC 13.3 thou/uL (4.0-11.0)
[2019-08-07 07:40] VITALS: BP 167/74
[2019-08-07 16:00] VITALS: BP 132/61
[2019-08-07 19:30] VITALS: BP 132/54
[2019-08-08 07:30] VITALS: BP 109/67
[2019-08-08] MEDS ORDERED: CEFDINIR300 MG PO (08:00)
[2019-08-08] MEDS ORDERED: ACIDOPHILUS1 EAC4 PO (08:00)
[2019-08-08] MEDS ORDERED: MUCINEX600 MG PO (08:00)
[2019-08-08 12:39] VITALS: BP 109/67
== END 2019-08-08 13:54 | disposition home or self-care (01) | DRG 194 ==
LOC: M.3W 12:44
PROVIDERS: ADMIT Internal Medicine
DX: J15.9 Unspecified bacterial pneumonia (principal); E44.1 Mild protein-calorie malnutrition; J44.0 Chronic obstructive pulmonary disease with (acute) lower respiratory infection; K52.1 Toxic gastroenteritis and colitis; Z96.652 Presence of left artificial knee joint; F32.9 Major depressive disorder, single episode, unspecified; I10 Essential (primary) hypertension; T36.8X5A Adverse effect of other systemic antibiotics, initial encounter; Z90.49 Acquired absence of other specified parts of digestive tract; Z85.89 Personal history of malignant neoplasm of other organs and systems; Z87.891 Personal history of nicotine dependence; Z93.3 Colostomy status; Z68.26 Body mass index [BMI] 26.0-26.9, adult; Z79.84 Long term (current) use of oral hypoglycemic drugs; Z79.899 Other long term (current) drug therapy; Z88.8 Allergy status to other drugs, medicaments and biological substances; Z88.1 Allergy status to other antibiotic agents; Z23 Encounter for immunization; Z79.51 Long term (current) use of inhaled steroids; Y92.89 Other specified places as the place of occurrence of the external cause

== ENCOUNTER → 2019-09-27 | Outpatient (CLI) | payer OTHER, MEDICAID ==
[~2019-09-27] MED LIST changes: +ACIDOPHILUS1 EAC4 PO; +MELATONIN5 MG PO; +VITAMIN D32000 UNIT PO
== END ==
LOC: M.RAD 13:10
DX: Z78.0 Asymptomatic menopausal state (principal)

== ENCOUNTER → 2019-12-13 | Outpatient (CLI) | payer OTHER, MEDICAID | LOC: M.PC 04:30 | DX: M43.16 Spondylolisthesis, lumbar region (principal); M51.36 Other intervertebral disc degeneration, lumbar region; M48.061 Spinal stenosis, lumbar region without neurogenic claudication; M47.816 Spondylosis without myelopathy or radiculopathy, lumbar region; M25.561 Pain in right knee; M25.562 Pain in left knee; Z96.651 Presence of right artificial knee joint; M40.46 Postural lordosis, lumbar region ==

== ENCOUNTER → 2019-12-27 | Outpatient (CLI) | payer OTHER, MEDICAID | LOC: M.PC 02:17 | DX: M51.36 Other intervertebral disc degeneration, lumbar region (principal); M47.816 Spondylosis without myelopathy or radiculopathy, lumbar region; Z96.651 Presence of right artificial knee joint; Z96.652 Presence of left artificial knee joint; Z87.891 Personal history of nicotine dependence; Z79.899 Other long term (current) drug therapy ==

== ENCOUNTER → 2020-02-07 | Outpatient (CLI) | payer OTHER, MEDICAID ==
[~2020-02-07] MED LIST changes: +FISH OIL 1,0001 EAC9 PO; +TYLENOL WITH CO1 TA1 PO
== END ==
LOC: M.PC 02:50
PROVIDERS: ATTEND Physical Medicine & Rehabilitation
DX: M47.816 Spondylosis without myelopathy or radiculopathy, lumbar region (principal); M25.561 Pain in right knee; M25.562 Pain in left knee; M51.36 Other intervertebral disc degeneration, lumbar region; M81.0 Age-related osteoporosis without current pathological fracture; Z96.652 Presence of left artificial knee joint; Z96.651 Presence of right artificial knee joint

== ENCOUNTER → 2020-02-21 | Outpatient (CLI) | payer OTHER, MEDICAID | END | disposition home or self-care (01) | LOC: M.PC 10:03 | PROVIDERS: ATTEND Physical Medicine & Rehabilitation | DX: M47.816 Spondylosis without myelopathy or radiculopathy, lumbar region (principal); Z79.899 Other long term (current) drug therapy; Z88.8 Allergy status to other drugs, medicaments and biological substances ==

== ENCOUNTER → 2020-03-27 | Outpatient (CLI) | payer OTHER, MEDICAID | LOC: M.RAD 07:54 → M.PC 07:54 | PROVIDERS: ATTEND Physical Medicine & Rehabilitation | DX: Z12.31 Encounter for screening mammogram for malignant neoplasm of breast (principal); S39.012D Strain of muscle, fascia and tendon of lower back, subsequent encounter; M25.561 Pain in right knee; M25.562 Pain in left knee; M51.36 Other intervertebral disc degeneration, lumbar region; M47.816 Spondylosis without myelopathy or radiculopathy, lumbar region; Z87.891 Personal history of nicotine dependence; X58.XXXD Exposure to other specified factors, subsequent encounter ==

== ENCOUNTER 2020-04-08 17:36 | Emergency (ER) | payer OTHER, MEDICAID ==
[~2020-04-08] VITALS: Ht 149.9 cm; Wt 67.1 kg
[2020-04-08 18:20] LABS: ABSOLUTE LYMPHOCYTES 1.9 thou/uL (0.8-5.3); ABSOLUTE MONOCYTES 0.5 thou/uL (0.0-1.2); ABSOLUTE NEUTROPHILS 3.9 thou/uL (1.6-8.1); BASOPHILS 0.8 %; EOSINOPHILS 0.5 %; HEMATOCRIT 38.2 % (37.0-47.0); HEMOGLOBIN 13.5 gm/dL (12.0-15.0); LYMPHOCYTES 29.3 %; MCH 33.6 pg (26.0-34.0); MCHC 35.4 g/dL (28.0-37.0); MCV 94.7 fL (80.0-100.0); MONOCYTES 7.8 %; MPV 7.1 fl. (7.2-11.1); NUCLEATED RBCS 0 /100WBC; PLATELET COUNT* 167 thou/uL (150-400); POLYS 61.6 %; RBC 4.03 mil/uL (4.20-5.00); RDW-CV 13.1 % (10.5-14.5); WBC 6.4 thou/uL (4.0-11.0)
[2020-04-08 18:31] LABS: APTT 27.1 Seconds (25.0-31.3); PROTIME 10.8 Seconds (9.20-11.50)
[2020-04-08 18:33] LABS: CALCIUM 8.9 mg/dL (8.5-10.1); CREATININE 1.1 mg/dL (0.6-1.3); POTASSIUM 3.9 mmol/L (3.5-5.1)
[2020-04-08 18:47] LABS: ALBUMIN 3.6 g/dL (3.4-5.0); MAGNESIUM 1.7 mg/dL (1.8-2.4); TOTAL PROTEIN 6.7 g/dL (6.4-8.2)
[2020-04-08 18:57] VITALS: BP 125/55
--- NOTE | 2020-04-09 14:19 | EKG ---
[place] [address] ELECTROCARDIOGRAM REPORT Name: BRENDEN EASTON Room: [facility]#: [id number] Admission: 04/08/20 Attend Phys: Discharge: 04/08/20 Date of : 37 Date of Service: 04/08/20 174 Report #: [id number] THIS REPORT FOR: //name// [facility] ED Test Date: 2020-04-08 Test Time: 17:43:46 Pat Name: BRENDEN EASTON Department: Room: Gender: F Loom Tuner: [facility] : 1935 Requested By: Michele John Order Number: [id number] MD: Jericho Valadez Measurements Intervals [place] Rate: 62 P: 49 SC: 182 QRS: -6 QRSD: 99 T: 90 QT: 424 QTc: 431 Interpretive Statements Sinus rhythm Borderline repolarization abnormality Compared to ECG 07/26/2019 19:43:24 Myocardial infarct finding no longer present Electronically Signed On 04-09-2020 14:18:48 CDT by Jericho Valadez [email or web address] <ELECTRONICALLY SIGNED> By: Jorge Valadez MD, [facility] 04/09/20 1418 1743 1743 Jorge Valadez MD, [facility] /EPI
== END 2020-04-08 18:58 | disposition home or self-care (01) ==
LOC: M.ERS 17:36
PROVIDERS: Family Medicine
DX: R07.89 Other chest pain (principal); I10 Essential (primary) hypertension; Z88.6 Allergy status to analgesic agent; Z88.1 Allergy status to other antibiotic agents; Z88.2 Allergy status to sulfonamides; Z90.89 Acquired absence of other organs; Z90.49 Acquired absence of other specified parts of digestive tract; Z85.828 Personal history of other malignant neoplasm of skin; Z96.642 Presence of left artificial hip joint

== ENCOUNTER → 2020-04-10 | Outpatient (CLI) | payer OTHER, MEDICAID | LOC: M.PC 08:20 | PROVIDERS: ATTEND Physical Medicine & Rehabilitation | DX: M43.16 Spondylolisthesis, lumbar region (principal); M43.17 Spondylolisthesis, lumbosacral region; M25.78 Osteophyte, vertebrae; M41.84 Other forms of scoliosis, thoracic region; I10 Essential (primary) hypertension; M51.36 Other intervertebral disc degeneration, lumbar region; M47.816 Spondylosis without myelopathy or radiculopathy, lumbar region; M54.5 Low back pain; M25.562 Pain in left knee; M25.561 Pain in right knee; M81.0 Age-related osteoporosis without current pathological fracture ==

== ENCOUNTER → 2020-04-17 | Outpatient (CLI) | payer OTHER, MEDICAID | END | disposition home or self-care (01) | LOC: M.PC 09:20 | PROVIDERS: ATTEND Physical Medicine & Rehabilitation | DX: M47.816 Spondylosis without myelopathy or radiculopathy, lumbar region (principal); Z79.899 Other long term (current) drug therapy ==

== ENCOUNTER → 2020-05-01 | Outpatient (CLI) | payer OTHER, MEDICAID | LOC: M.PC 08:44 | PROVIDERS: ATTEND Physical Medicine & Rehabilitation | DX: S39.012D Strain of muscle, fascia and tendon of lower back, subsequent encounter (principal); M25.561 Pain in right knee; M25.562 Pain in left knee; M81.0 Age-related osteoporosis without current pathological fracture; Z96.653 Presence of artificial knee joint, bilateral; X58.XXXD Exposure to other specified factors, subsequent encounter ==

== ENCOUNTER → 2020-06-02 | Outpatient (CLI) | payer OTHER, MEDICAID ==
--- NOTE | 2020-06-02 18:06 | CARDNUC ---
[place] [address] CARDIAC NUCLEAR IMAGING REPORT Name: BRENDEN EASTON Room: [facility]#: [id number] Admission: 06/02/20 Attend Phys: Manuel Neil DO Discharge: Date of : 37 Date of Service: 06/02/20 1806 Report #: [id number] THIS REPORT FOR: cc: Manuel Neil Adam J DO Liston, Michael J. MD [facility] ~ APPROVED REPORT Imaging Protocol: Stress Tc-99m/Rest Tc-99m 1 day Study performed: 06/02/2020 09:51:57 Indication: Chest pain Patient Location: Out-Patient Stress Tech: Lorraine Hansen Stress Nurse: Alma Calderon RN Ht: 5 ft 1 in Wt: 141 lbs BSA: 1.63 m2 BMI: 26.63 Medical History Medical History: Diabetes, HTN Medications: amlodipine, atenolol, losartan, simvastatin Allergies: amlodipine, clonazepam, diphenhydramine, enalpril, glycopyrrolate, levofloxacin, meclomen, myrbetriq, remeron Cardiac Risk Factors: age, htn, diabetes, former smoker, Exercise History: Sedentary Meds Held (24 hrs): atenolol Resting Data Rest SPECT myocardial perfusion imaging was performed in supine position 30 minutes following the intravenous injection of 9.6 mCi of Tc-99m Sestamibi. Time of rest injection: 08:15 The images were gated to evaluate regional wall motion and calculate left ventricular ejection fraction. Administration Route: IV Administration Site: Left AC Pharmacologic Stress Pharmacologic stress test was performed by injecting Regadenoson 0.4 mg IV push over 10-15 seconds immediately followed by the intravenous injection of 30.6 mCi of Tc-99m Sestamibi. Time of stress injection: 09:50 Administration Route: [place] [address] CARDIAC NUCLEAR IMAGING REPORT Name: BRENDEN EASTON Room: [facility]#: [id number] Admission: 06/02/20 Attend Phys: Manuel Neil DO Discharge: Date of : 37 Date of Service: 06/02/20 1806 Report #: [id number] Administration Site: Left AC Heart Rate at time of stress injection: 87 bpm. Gated Stress SPECT was performed 45 minutes after stress injection. The images were gated to evaluate regional wall motion and calculate left ventricular ejection fraction. Prone imaging was performed. Stress Test Details Stress Test: Pharmacologic stress testing performed using 0.4 mg of regadenoson per 5 mL given IV over 10 seconds. HR Max Heart Rate (APMHR): 137 bpm Resting HR: 61 bpm Target HR (85% APMHR): 116 bpm Max HR Achieved: 87 bpm % of APMHR: 63 Recovery HR: 75 bpm BP Resting BP: 123/71 mmHg Max BP: 150/75 mmHg Recovery BP: 172/82 mmHg ECG Resting ECG: Sinus Rhythm, nonspecific ST-T abnormalities Stress ECG: Sinus Rhythm, nonspecific ST-T abnormalities ST Change: None Arrhythmia: None Recovery ECG: Sinus Rhythm, nonspecific ST-T abnormalities Recovery ST Change: None Recovery Arrhythmia: None Clinical Reason for Termination: Completed protocol The patient tolerated Lexiscan infusion without significant cardiac symptoms. Stress ECG Conclusion The baseline twelve-lead EKG shows sinus rhythm with nonspecific ST segment depression diffusely. EKGs obtained during and post Lexiscan infusion showed sinus rhythm with no significant ST segment changes when compared to baseline. There were no stress-induced arrhythmias[place] [address] CARDIAC NUCLEAR IMAGING REPORT Name: EASTONBRENDEN Room: [facility]#: [id number] Admission: 06/02/20 Attend Phys: Manuel Neil DO Discharge: Date of : 37 Date of Service: 06/02/20 1806 Report #: [id number] Study: Good Artifact: Mild Breast artifact Study Data At rest, the left ventricular ejection fraction was 66%.. Post stress, the left ventricular ejection was 72%.. TID = 0.93. Perfusion Perfusion images obtained in the supine position at rest and post Lexiscan stress show mild photopenia involving the mid to apical anterior wall that resolves completely with post stress prone imaging suggesting breast attenuation artifact. No other significant fixed or reversible defects are identified. Wall Motion Normal left ventricular wall motion. Nuclear Conclusion ECG Findings: non-diagnostic Clinical Findings: negative for ischemia Nuclear Findings: negative for ischemia Exercise Capacity: not assessed Left Ventricular Function: normal Risk Study: low Perfusion images show no defect to suggest infarct or ischemia. Left ventricular systolic function appears normal on gated studies. This is a low risk study. <Conclusion> The baseline twelve-lead EKG shows sinus rhythm with nonspecific ST segment depression diffusely. EKGs obtained during and post Lexiscan infusion showed sinus rhythm with no significant ST segment changes when compared to baseline. There were no stress-induced arrhythmias. <ELECTRONICALLY SIGNED> By: Tre Perez MD, FACC 06/02/201805 05 05 Tre Perez MD, FACC /INF
== END ==
LOC: M.NUC 05-23 09:16
PROVIDERS: ATTEND Family Medicine
DX: I10 Essential (primary) hypertension (principal); R07.89 Other chest pain

== ENCOUNTER → 2020-06-26 | Outpatient (CLI) | payer OTHER, MEDICAID | LOC: M.PC 09:00 | PROVIDERS: ATTEND Physical Medicine & Rehabilitation | DX: M25.561 Pain in right knee (principal); M25.562 Pain in left knee; M81.0 Age-related osteoporosis without current pathological fracture; M51.36 Other intervertebral disc degeneration, lumbar region; M47.816 Spondylosis without myelopathy or radiculopathy, lumbar region; Z96.653 Presence of artificial knee joint, bilateral; Z88.8 Allergy status to other drugs, medicaments and biological substances; Z79.899 Other long term (current) drug therapy ==

== ENCOUNTER → 2020-08-02 | Outpatient (CLI) | payer OTHER, MEDICAID | LOC: M.PC 08:43 | PROVIDERS: ATTEND Physical Medicine & Rehabilitation | DX: M43.16 Spondylolisthesis, lumbar region (principal); M40.204 Unspecified kyphosis, thoracic region; M54.5 Low back pain; M47.816 Spondylosis without myelopathy or radiculopathy, lumbar region; M51.36 Other intervertebral disc degeneration, lumbar region; M25.562 Pain in left knee; M25.561 Pain in right knee; M81.0 Age-related osteoporosis without current pathological fracture ==

== ENCOUNTER → 2020-08-09 | Outpatient (CLI) | payer OTHER, MEDICAID | LOC: M.PC 08:50 | PROVIDERS: ATTEND Physical Medicine & Rehabilitation | DX: S39.012D Strain of muscle, fascia and tendon of lower back, subsequent encounter (principal); M47.816 Spondylosis without myelopathy or radiculopathy, lumbar region; M51.36 Other intervertebral disc degeneration, lumbar region; M25.561 Pain in right knee; M25.562 Pain in left knee; M81.0 Age-related osteoporosis without current pathological fracture; Z96.653 Presence of artificial knee joint, bilateral; X58.XXXD Exposure to other specified factors, subsequent encounter ==

== ENCOUNTER → 2020-09-06 | Outpatient (CLI) | payer OTHER, MEDICAID | LOC: M.LAB 15:28 | PROVIDERS: ATTEND Physical Medicine & Rehabilitation | DX: Z01.812 Encounter for preprocedural laboratory examination (principal); Z20.822 Contact with and (suspected) exposure to COVID-19 ==

== ENCOUNTER 2020-09-24 21:13 | Inpatient (IN) | payer OTHER, MEDICAID ==
[~2020-09-24] VITALS: Ht 149.9 cm; Wt 63.5 kg
--- NOTE | ~2020-09-24 | PROC ---
[address] [address] PROCEDURE REPORT Name: BRENDEN EASTON Room: [address] IN M.R.#: [id number] Admission: 09/25/20 Attend Phys: Analy Lyn MD Discharge: Date of : 37 Report #: [id number] THIS REPORT FOR: cc: Manuel Neil Adam J DO ~ [facility],Medical Records Staff For GI report, please see the Provation report in Perceptive 7 content. By: [id number] Records Staff FELIPE /MINE
[2020-09-24 21:20] VITALS: BP 142/58
[2020-09-24 21:33] LABS: ABSOLUTE EOSINOPHILS 0.2 thou/uL (0.0-0.7); ABSOLUTE LYMPHOCYTES 2.8 thou/uL (0.8-5.3); ABSOLUTE MONOCYTES 0.7 thou/uL (0.0-1.2); BASOPHILS 0.4 %; EOSINOPHILS 2.1 %; HEMATOCRIT 40.8 % (37.0-47.0); HEMOGLOBIN 13.9 gm/dL (12.0-15.0); MCH 32.7 pg (26.0-34.0); MCHC 34.2 g/dL (28.0-37.0); MCV 95.8 fL (80.0-100.0); MONOCYTES 7.3 %; NUCLEATED RBCS 0 /100WBC; PLATELET COUNT* 216 thou/uL (150-400); POLYS 61.2 %; RBC 4.26 mil/uL (4.20-5.00); RDW-CV 13.3 % (10.5-14.5); WBC 9.7 thou/uL (4.0-11.0)
[2020-09-24 21:42] LABS: PROTIME 10.9 Seconds (9.20-11.50)
[2020-09-24 21:44] LABS: CALCIUM 9.4 mg/dL (8.5-10.1); CREATININE 1.1 mg/dL (0.6-1.3); POTASSIUM 3.7 mmol/L (3.5-5.1)
[2020-09-24 21:55] LABS: ALBUMIN 3.8 g/dL (3.4-5.0); MAGNESIUM 1.3 mg/dL (1.8-2.4); TOTAL BILIRUBIN 0.7 mg/dL (<0.1-1.0); TOTAL PROTEIN 6.8 g/dL (6.4-8.2)
[2020-09-24 22:00] LABS: URINE BILIRUBIN NEGATIVE (Negative); URINE BLOOD NEGATIVE (Negative); URINE CLARITY CLEAR; URINE COLOR YELLOW; URINE GLUCOSE-RANDOM NEGATIVE (Negative); URINE KETONES NEGATIVE (Negative); URINE LEUKOCYTES-REFLEX TRACE (Negative); URINE NITRITE-REFLEX NEGATIVE (Negative); URINE PROTEIN NEGATIVE (Negative); URINE SPECIFIC GRAVITY <= 1.005 (1.005-1.030); URINE UROBILINOGEN 0.2 E.U./dl (0.2-1.0)
[2020-09-24 22:09] LABS: MUCUS None Seen strn/LPF (None Seen); SQUAMOUS 0-3 Few /LPF (0-3)
[2020-09-24 22:10] LABS: BACTERIA-REFLEX None Seen /HPF (None Seen); CASTS None Seen /LPF (None Seen); CRYSTALS None Seen /LPF (None Seen); URINE RBC None Seen /HPF (0-2); URINE WBC-REFLEX 0-5 Rare /HPF (0-5)
[2020-09-25 05:14] VITALS: BP 118/56
[2020-09-25 05:40] VITALS: BP 140/59
[2020-09-25 07:30] VITALS: BP 123/52
--- NOTE | 2020-09-25 11:13 | EKG ---
[place] [address] ELECTROCARDIOGRAM REPORT Name: JEMMABRENDEN Michael Room: [address]#: [id number] Admission: 09/25/20 Attend Phys: Analy Lyn, Discharge: Date of : 37 Date of Service: 09/24/202125 Report #: [id number] THIS REPORT FOR: //name// [facility] ED Test Date: 2020-09-24 Test Time: 21:26:11 Pat Name: BRENDEN EASTON Department: Room: [facility] Gender: F Employee Relations Administrator: BRITANY : 1935 Requested By: Catalina Lopez Order Number: [id number] MD: Feng Baig Measurements Intervals [place] Rate: 62 P: 40 MD: 185 QRS: -18 QRSD: 99 T: 30 QT: 465 QTc: 473 Interpretive Statements Sinus rhythm LVH with secondary repolarization abnormality Inferior infarct, old Anterior Q waves, possibly due to LVH Compared to ECG 04/08/2020 17:43:46 Left ventricular hypertrophy now present Electronically Signed On 09-25-2020 11:13:24 MANAGER GAMES by Feng Baig [email or web address] <ELECTRONICALLY SIGNED> By: Feng Baig MD, FAC 09/25/20 1113 25 25 Feng Baig MD, FAC /EPI
[2020-09-25 16:21] VITALS: BP 162/72
--- NOTE | 2020-09-25 17:50 | CARDNUC ---
[place] [address] CARDIAC NUCLEAR IMAGING REPORT Name: BRENDEN EASTON Room: [address] M.R.#: [id number] Admission: 09/25/20 Attend Phys: Analy Lyn, Discharge: Date of : 37 Date of Service: 09/25/20 1749 Report #: [id number] THIS REPORT FOR: cc: Manuel Neil Adam J DO Liston, Michael J. MD [facility] ~ APPROVED REPORT Study performed: 09/25/2020 14:37:04 Exam: Nuclear Stress Test Indication: Chest pain Patient Location: In-Patient Stress Tech: Claudia Mendoza Stress Nurse: Noam Asher Tech:MALCOLM Disla Ht: 4 ft 11 in Wt: 140 lbs BSA: 1.58 m2 BMI: 28.27 Medical History Medical History: Chest pain right and left sided, LVH, Heart thumping feeling,chronic diarrhea, unsteady "wobbley"gait, Left lung lobectomy, increased fatigue, DM, Bradycardia, chronic diarrhea, RUQ pain, Left total hip, left knee replacement, constipation, past smoker. Medications: Losartan, Atenolol, Atorvastatin, home meds include Amlodipine, Simvastatin. Allergies: Multiple medicaiton allergies, See EMAR. Cardiac Risk Factors: Age, Diabetes (non-insulin), FHX of CAD, HTN, Hyperlipidemia, Past Smoker. Previous Cardiac Procedures: None Pretest Chest Pain Characteristics: No chest pain Exercise History: Sedentary Physical Disabilities: Unsteady, unsafe gait, chronic diarrhea. Meds Held (24 hrs): Atenolol. Stress Test Details Stress Test: Pharmacologic stress testing performed using 0.4 mg of regadenoson per 5 mL given IV over 10 seconds. Reason for pharmacologic stress test: Unsteady, unsafe gait, chronic diarrhea.. HR Resting HR: 58 bpm Max Heart Rate (APMHR): 136 [place] [address] CARDIAC NUCLEAR IMAGING REPORT Name: BRENDEN EASTON [address] [id number] Admission: 09/25/20 Attend Phys: Analy Lyn, Discharge: Date of : 37 Date of Service: 09/25/20 1749 Report #: [id number] Max HR Achieved: 98 bpm Target HR (85% APMHR): 115 bpm % of APMHR: 72 Recovery HR: 67 bpm BP Resting BP: 158/75 mmHg Max BP: 122/65 mmHg ECG Resting ECG: Sinus Rhythm, nonspecific ST-T abnormalities Stress ECG: Sinus Rhythm, nonspecific ST-T abnormalities ST Change: None Arrhythmia: None Recovery ECG: Sinus Rhythm, nonspecific ST-T abnormalities Recovery ST Change: None Recovery Arrhythmia: None Clinical Reason for Termination: Completed protocol Stress Symptoms: Dyspnea, nausea, lightheaded/dizzy, ABD pain, chest pressure 4-6/10, headache, sinus pain. Exercise duration: 00 min 00 sec Exercise capacity: 1.00 METs The patient reported chest pressure during and post Lexiscan infusion. Nurse Comments An 85 year old female inpatient presented for a sitting Lexiscan Nuclear Stress Test. Test well tolerated. Recovery unremarkable. Patient was stable and stated she felt good when escorted via wheelchair to Nuclear Medicine for imaging. Stress ECG Conclusion Baseline twelve-lead EKG shows sinus rhythm with 0.5 to [address] segment depression in the inferolateral leads. EKGs obtained during and post Lexiscan infusion shows sinus rhythm with no significant ST segment changes when compared to baseline. There were no stress-induced arrhythmias. NM EXAM: Myocardial Perfusion REST/STRESS Imaging Protocol: Rest Tc-99m/Stress Tc-99m 1 day Resting Data Rest SPECT myocardial perfusion imaging was performed [place] [address] CARDIAC NUCLEAR IMAGING REPORT Name: EASTONBRENDEN Room: [address] M.RCourtney#: [id number] Admission: 09/25/20 Attend Phys: Analy Lyn, Discharge: Date of : 37 Date of Service: 09/25/20 1749 Report #: [id number] position 30 minutes following the intravenous injection of 10.4 mCi of Tc-99m Sestamibi. Time of rest injection: 1300 Date: 09/25/2020 The images were gated to evaluate regional wall motion and calculate left ventricular ejection fraction. Administration Route: IV Administration Site: Right Arm Pharmacologic Stress Pharmacologic stress test was performed by injecting Regadenoson 0.4 mg IV push followed by the intravenous injection of 33.6 mCi of Tc-99m Sestamibi. Time of stress injection: 1450 Date: 09/25/2020 Administration Route: IV Administration Site: Right Arm Gated Stress SPECT was performed 40 minutes after stress injection. The images were gated to evaluate regional wall motion and calculate left ventricular ejection fraction. Stress only was performed in the Supine position. Study Quality Study: Good Artifact: No artifact Study Data At rest, the left ventricular ejection fraction was 70%.. Post stress, the left ventricular ejection was 73%.. TID = 1.14. Perfusion Perfusion images show a focal to small in size moderate intensity reversible apical defect. No other fixed or reversible defects are identified. Wall Motion Normal left ventricular wall motion. Nuclear Conclusion ECG Findings: non-diagnostic Clinical Findings: positive for ischemia Nuclear Findings: positive for ischemia Exercise Capacity: not assessed Left Ventricular Function: normal Risk Study: high Perfusion images show evidence of apical ischemia. [place] [address] CARDIAC NUCLEAR IMAGING REPORT Name: BRENDEN EASTON Room: [address] Shital MGio#: [id number] Admission: 09/25/20 Attend Phys: Analy Lyn, Discharge: Date of : 37 Date of Service: 09/25/20 1749 Report #: [id number] systolic function is preserved on gated studies. This is a high risk study. <Conclusion> Baseline twelve-lead EKG shows sinus rhythm with 0.5 to [address] segment depression in the inferolateral leads. EKGs obtained during and post Lexiscan infusion shows sinus rhythm with no significant ST segment changes when compared to baseline. There were no stress-induced arrhythmias. <ELECTRONICALLY SIGNED> By: Tre Perez MD, FACC 09/25/201748 48 48 Tre Perez MD, FACC /INF
[2020-09-25 20:00] VITALS: BP 150/66
[2020-09-26 06:33] LABS: CALCIUM 8.1 mg/dL (8.5-10.1); CREATININE 0.7 mg/dL (0.6-1.3); MAGNESIUM 1.4 mg/dL (1.8-2.4); PHOSPHORUS* 2.4 mg/dL (2.5-4.9); POTASSIUM 3.2 mmol/L (3.5-5.1)
[2020-09-26 07:20] VITALS: BP 150/57
[2020-09-26 11:24] VITALS: BP 150/57
[2020-09-26 20:59] VITALS: BP 159/70
[2020-09-27] VITALS (21 sets, daily range): BP systolic 156–185; BP diastolic 57–96
[2020-09-27 04:58] LABS: MAGNESIUM 1.5 mg/dL (1.8-2.4)
[2020-09-27] MEDS ORDERED: PLAVIX 75 MG TA75 M1 PO (10:20)
[2020-09-27] MEDS ORDERED: BAYER CHEWABLE81 MG PO (10:20)
[2020-09-27] MEDS ORDERED: XIFAXAN550 M1 PO (10:20)
[2020-09-27] MEDS ORDERED: CHOLESTYRAMINE L4 GM PO (10:20)
[2020-09-27] MEDS ORDERED: NEOMYCIN SULFA500 MG PO (10:20)
--- NOTE | 2020-09-27 14:03 | CARD ---
[address] [address] CARDIAC CATH REPORT Name: BRENDEN EASTON Room: [address] IN [facility].#: [id number] Admission: 09/25/20 Attend Phys: Analy Lyn MD Discharge: Date of : 36 Report #: [id number] THIS REPORT FOR: cc: Manuel Neil Adam J DO ~ Feng Baig MD [facility] APPROVED REPORT Study performed: 09/27/2020 08:22:40 Patient Details Patient Status: In-Patient Room #: The patient is a 85 year-old female Event Personnel Feng Baig Roof Bolting Coal Miner, Almita Luis RN RN, Manuel De Leon RTR Scrub, Binaca Shelby RTR Monitor Procedures Performed Art Access - R radial artery Left Heart Cath w/or w/o Coronaries CHAD Place w/wo Plasty Single LAD CHAD Place w/wo Plasty Addl BR DIAG 2 Hemostasis with Hemoband Indication Atypical chest pain , Positive stress test Risk Factors Hypercholesterolemia, Hypertension, Diabetes Admission/Lab Medications/Medications given during procedure Glycoprotein IllbIlla Inhibitors, Heparin Unfract., Oxygen Nasal cannula 2 l per min, 0.9% Sodium Chloride IV 75 ml per hr, Aspirin PO 324 mg, Fentanyl IV 50 mcg, Midazolam (Versed) IV 2 mg, Lidocaine Subcut 8 ml, Nitroglycerin IA 200 mcg, Verapamil IA 2.5 mg, Heparin IV 3100 units, Heparin IV 3000 units, Aggrastat IV 6.7 ml, Nitroglycerin IC 200 mcg, Plavix PO 600 mg Procedure Narrative The patient was brought electively to the Cardiac Catheterization Laboratory and was prepped and draped in a sterile manner. The right wrist was infiltrated with 2% Lidocaine subcutaneous anesthesia. IV conscious sedation was used throughout procedure with appropriate monitoring and was performed in the presence [place] [address] CARDIAC CATH REPORT Name: BRENDEN EASTON Room: [address] [facility]#: [id number] Admission: 09/25/20 Attend Phys: Analy Lyn MD Discharge: Date of : 36 Report #: [id number] who was an independent trained observer other than the physician performing the procedure. A Slender Glidesheath sheath was inserted into the right radial artery. Coronary angiography was performed using coronary diagnostic catheters. The right coronary system was accessed and visualized with a Diagnostic 6 Fr JR 4 catheter. The left coronary system was accessed and visualized with a Diagnostic 6 Fr JL 4 catheter. The left ventricle was accessed and visualized with a Diagnostic 6 Fr Pigtail catheter. Left ventricular/Aortic Valve gradient assessed via catheter pullback. Left ventriculogram was performed in BLUNT projection. Closure device was deployed with a 6 Fr Vasc-Band Reg 24cm. The patient tolerated the procedure well and there were no complications associated with the procedure. There was no hematoma. Intraoperative Conscious Sedation Sedation start time: 09:04 Case end Time: 09:54 Fentanyl 50 mcg Versed 2 mg Fluoro Time: 9.3 minutes Dose: DAP 61926 cGycm2 1539 mGy Contrast Type and Amount: Visipaque 320 ml Coronary Angiography The patient's coronary anatomy is right dominant. Diagnostic Cath Left Main 0% stenosis LAD 80% mid and 90% distal stenosis Diagonal 2 medium sized vessel with 70% ostial and 90% mid stenosis Circumflex 40% proximal and 50% distal stenosis Right Coronary 50% proximal and 40% mid stenosis Left Ventriculography The left ventricular ejection fraction is estimated to be 60-65%. Left ventricular wall motion abnormalities are not present. There is no mitral insufficiency. Hemodynamics The aortic pressure is 149/64 mmHg with a mean of 99 mmHg. The left ventricular pressure is 147/10 mmHg with a mean of mmHg. The left ventricular end diastolic pressure is 14 mmHg. There was no gradient across the aortic valve upon pullback. Pullback from the left ventricle to the aorta revealed no [place] [address] CARDIAC CATH REPORT Name: BRENDEN EASTON Room: [address] IN ..#: [id number] Admission: 09/25/20 Attend Phys: Analy Lyn MD Discharge: Date of : 36 Report #: [id number] valve. PCI Technique Lesion Anticoagulation was achieved with Heparin. bolus of iv aggrastat given Percutaneous coronary intervention was performed on the second diagnonal branch segment. The lesion stenosis prior to intervention was 90% with VINCENT 3 flow. A 6FR XB LAD 3.0 100CM Guide Catheter was used to engage the left ostium. A IG: BMW 190cm Interventional Guidewire was used to cross the lesion. BALLOON DILATION A Balloon catheter Mini Trek RX 2.0 X 8 was inserted and inflated up to 10.00atm for 13seconds. Repeat angiography revealed the following post-dilatation results: 40% stenosis. STENT DEPLOYMENT A drug-eluting stent Alvin RX Stent 2.16V34ir was inserted and inflated up to 10.00atm for 12seconds. Repeat angiography revealed the following post-stent deployment results: 0% stenosis. Additional Inflation: 11.00atm for 12seconds. Final angiography reveals 0 % stenosis with VINCENT 3 flow. PCI Technique Lesion 2 Percutaneous Coronary Intervention was performed on the distal left anterior descending artery segment. Percutaneous coronary intervention was performed on the distal left anterior descending artery segment. The lesion stenosis prior to intervention was 90% with VINCENT 3 flow. A 6FR XB LAD 3.0 100CM Guide Catheter was used to engage the left ostium. A IG: BMW 190cm Interventional Guidewire was used to cross the lesion. Balloon Dilation A Balloon catheter Mini Trek RX 2.0 X 8 was inserted and inflated up to 6.00atm for 9seconds. Repeat angiography revealed the following post-dilatation results: 30% stenosis. Additional Inflation: 10.00atm for 12seconds. Additional Inflation: 18.00atm for 12seconds. Stent Deployment A drug-eluting stent Alvin RX Stent 2.88N84zh was inserted and inflated up to 8.00atm for 11seconds. Repeat angiography revealed the following post-stent deployment results: 0% stenosis. Additional Inflation: 10.00atm for 11seconds. Final angiography reveals 0 % stenosis with VINCENT [address] [address] CARDIAC CATH REPORT Name: BRENDEN EASTON Room: [address]#: [id number] Admission: 09/25/20 Attend Phys: Analy Lyn MD Discharge: Date of : 36 Report #: [id number] PCI Technique Lesion 3 Percutaneous Coronary Intervention was performed on the mid left anterior descending artery segment. Percutaneous coronary intervention was performed on the mid left anterior descending artery segment. The lesion stenosis prior to intervention was 80% with VINCENT 3 flow. A 6FR XB LAD 3.0 100CM Guide Catheter was used to engage the left ostium. A IG: BMW 190cm Interventional Guidewire was used to cross the lesion. Balloon Dilation A Balloon catheter 2.0 x 8 mm was inserted and inflated up to 16atm for 10seconds. Repeat angiography revealed the following post-dilatation results: 50% stenosis. Stent Deployment A drug-eluting stent [place] RX Stent 2.93J07ha was inserted and inflated up to 15.00atm for 15seconds. Repeat angiography revealed the following post-stent deployment results: 0% stenosis. Additional Inflation: 22.00atm for 18seconds. The second stent in the LAD was advanced so that there was minimal overlap between this stent and the more distal stent in the LAD. Final angiography reveals 0 % stenosis with VINCENT 3 flow. Conclusion 1. 80% mid and 90% distal stenosis in the LAD 2. 90% stenosis in the second diagonal artery 3. successful placement of a drug eluting stent in the diagonal branch, and 2 drug eluting stents in the LAD 4. LVEF 60-65% Recommendations Cardiac Rehabilitation Referral Aggressive Medical Therapy Medications Administered Clopidogrel <ELECTRONICALLY SIGNED> By: Feng Baig MD, FAC 09/27/20 1403 1403 1403David Jennyfer Baig MD, [facility] /INF
--- NOTE | 2020-09-27 14:06 | EKG ---
[place] [address] ELECTROCARDIOGRAM REPORT Name: JEMMABRENDEN Room: [address] ADM IN .R.#: [id number] Admission: 09/25/20 Attend Phys: Analy Lyn, Discharge: Date of : 37 Date of Service: 09/27/20 1026 Report #: [id number] THIS REPORT FOR: //name// [facility] Test Date: 2020-09-27 Test Time: 10:26:10 Pat Name: BRENDEN EASTON Department: Room: [address] Gender: F Source Inspector: AHMET : 1935 Requested By: Feng Baig Order Number: [id number] Reading MD: Feng Baig Measurements Intervals [place] Rate: 59 P: 51 ND: 192 QRS: -12 QRSD: 95 T: -6 QT: 455 QTc: 451 Interpretive Statements Sinus rhythm poor r wave progression Borderline T abnormalities, diffuse leads Compared to ECG 09/24/2020 21:26:11 T-wave abnormality now present Left ventricular hypertrophy no longer present Electronically Signed On 09-27-2020 14:06:39 RAIL LOADER by Feng Baig [email or web address] <ELECTRONICALLY SIGNED> By: Feng Baig MD, [facility] 09/27/20 1406 1026 1026 Feng Baig MD, [facility] /EPI
[2020-09-27 15:04] LABS: CHOLESTEROL 119 mg/dL (<200); HDL CHOLESTEROL 53 mg/dL (>40); LDL CHOLESTEROL 54 mg/dL (<100); SERUM ASSESSMENT Clear; TC:HDL 2.2 Ratio (Not establshd); TRIGLYCERIDE 60 mg/dL (<150); VLDL 12 mg/dL (<40)
[2020-09-27 16:48] LABS: HEMATOCRIT 39.8 % (37.0-47.0); HEMOGLOBIN 13.5 gm/dL (12.0-15.0)
[2020-09-28] VITALS: BP 170/76
[2020-09-28 03:40] VITALS: BP 161/74
[2020-09-28 04:35] LABS: HEMATOCRIT 38.7 % (37.0-47.0); HEMOGLOBIN 13.1 gm/dL (12.0-15.0); MCH 32.7 pg (26.0-34.0); MCV 96.2 fL (80.0-100.0); MPV 7.2 fl. (7.2-11.1); RBC 4.02 mil/uL (4.20-5.00); RDW-CV 13.4 % (10.5-14.5); WBC 9.3 thou/uL (4.0-11.0)
[2020-09-28 04:54] LABS: CALCIUM 8.8 mg/dL (8.5-10.1); CREATININE 0.8 mg/dL (0.6-1.3); POTASSIUM 3.8 mmol/L (3.5-5.1)
[2020-09-28 05:03] LABS: TROPONIN-I LEVEL 1.44 ng/mL (<0.06)
[2020-09-28 08:00] VITALS: BP 172/64
[2020-09-28] MEDS ORDERED: NITROGLYCERIN0.4 MG SUBLING (10:58)
[2020-09-28 11:06] VITALS: BP 156/61
--- NOTE | 2020-09-28 11:09 | EKG ---
[place] [address] ELECTROCARDIOGRAM REPORT Name: BRENDEN EASTON Room: [address] ADM IN .R.#: [id number] Admission: 09/25/20 Attend Phys: Analy Lyn, Discharge: Date of : 37 Date of Service: 09/28/20 0328 Report #: [id number] THIS REPORT FOR: //name// [facility] Test Date: 2020-09-28 Test Time: 03:28:46 Pat Name: BRENDEN EASTON Department: Room: [address] Gender: F City Auditor: [id number] : 1935 Requested By: Feng Baig Order Number: [id number] Reading MD: Feng Baig Measurements Intervals [place] Rate: 67 P: 35 NM: 190 QRS: -24 QRSD: 95 T: 18 QT: 444 QTc: 469 Interpretive Statements Sinus rhythm Borderline left axis deviation Anterior infarct, old Compared to ECG 09/27/2020 10:26 no change Electronically Signed On 09-28-2020 11:09:45 CABLE PLACER by Feng Baig [email or web address] <ELECTRONICALLY SIGNED> By: Feng Baig MD, FAC 09/28/20 1109 0328 0328 Feng Baig MD, [facility] /EPI
[2020-09-28 17:02] VITALS: BP 156/61
--- NOTE | 2020-10-02 14:06 | PATH ---
[address] [address] PATHOLOGY RPT PROCEDURE Name: AMAYA PRASAD Michael Room: [address] IN M.R.#: [id number] Admission: 09/25/20 Date of : 37 Discharge: 09/28/20 Report #: [id number] Path Case #: [id number] [facility] Accession Number: [id number] . 01 Material submitted: . PART A: gastrointestinal site - ESOPHAGEAL BIOPSY PART B: gastrointestinal site - GASTRIC ANTRAL BIOPSY R/O GASTRITIS PART C: colon - RANDOM COLON BIOPSY R/O MICROSCOPIC COLITIS . 01 Clinical history: . EGD AND COLONOSCOPY . 02 Diagnosis: A. Esophageal biopsy: - Benign esophageal and gastric/columnar types mucosa with moderate chronic inflammation typical of reflux, negative for goblet cells/diagnostic Mckeon's metaplasia and dysplasia. . B. Gastric antral biopsy: - Mild nonspecific chronic antral gastritis, negative for H. pylori organisms and dysplasia. . C. Random colon biopsy: - Normal colonic mucosa. . (CARISSA:isabel; 10/02/2020) . Special stain on B: H. pylori immuno MBR 10/02/2020 1314 Local . 02 Electronically signed: . Justen Pete MD, Pathologist NPI- [id number] . 01 Gross description: . A. The specimen is received in formalin, labeled "Amaya Prasad, esophageal biopsy". Received is a segment of pale pickard tissue measuring 0.4 cm in maximum dimensions. The specimen is submitted entirely in cassette A1. . B. The specimen is received in formalin, labeled "Amaya Prasad, gastric antral biopsy for gastritis". Received are two segments of pale pickard tissue measuring 0.3 cm each in maximum dimensions. The specimen is submitted entirely in cassette B1. . C. The specimen is received in formalin, labeled "Amaya Prasad, random colon biopsy, R/O microscopic colitis". Received are multiple segments of pale pickard tissue ranging in size from 0.2-0.5 cm in maximum dimensions. The specimen is submitted entirely in [place] [address] PATHOLOGY RPT PROCEDURE Name: AMAYA PRASAD Room: [address] M.R.#: [id number] Admission: 09/25/20 Date of : 37 Discharge: 09/28/20 Report #: [id number] Path Case #: [id number] (CAA; 09/29/2020) QAC/QAC 10/02/2020 1217 Local . 02 Pathologist provided ICD-10: K20.90, K29.50 . 02 CPT . 666714, 545604, 741263, A70968 Specimen Comment: A courtesy copy of this report has been sent to [phone] Specimen Comment: Report sent to , / Performed at: [address], [place] [id number] MD Bartolome Turcios MD Phone: [phone] Performed at: 02 [facility] [address], [place], [place] [id number] MD Justen Pete MD Phone: [phone]
== END 2020-09-28 17:30 | disposition home health service (06) | DRG 246 ==
LOC: M.ERS 21:13 → M.3W 09-25 04:40 → M.TBA-ER 09-25 04:40 → M.3W 09-25 04:40 → M.ERS 09-25 04:40 → M.TBA-ER 09-25 05:27 → M.3W 09-25 05:27 → M.TBA-ER 09-25 19:30 → M.2W 09-25 19:30 → M.3W 09-25 19:30 → M.2W 09-26 10:35 → M.3W 09-26 10:35 → M.2W 09-28 17:30
PROVIDERS: Emergency Medicine; Family Medicine; Internal Medicine; Internal Medicine Cardiovascular Disease; Registered Nurse; ADMIT Internal Medicine; ATTEND Internal Medicine
DX: I25.10 Atherosclerotic heart disease of native coronary artery without angina pectoris (principal); I50.31 Acute diastolic (congestive) heart failure; I24.9 Acute ischemic heart disease, unspecified; K57.32 Diverticulitis of large intestine without perforation or abscess without bleeding; K21.00 Gastro-esophageal reflux disease with esophagitis, without bleeding; K29.70 Gastritis, unspecified, without bleeding; K83.8 Other specified diseases of biliary tract; K44.9 Diaphragmatic hernia without obstruction or gangrene; Z96.652 Presence of left artificial knee joint; E11.65 Type 2 diabetes mellitus with hyperglycemia; G89.29 Other chronic pain; K59.00 Constipation, unspecified; M79.606 Pain in leg, unspecified; K52.9 Noninfective gastroenteritis and colitis, unspecified; E87.6 Hypokalemia; E78.5 Hyperlipidemia, unspecified; I11.0 Hypertensive heart disease with heart failure; K64.8 Other hemorrhoids; Z20.822 Contact with and (suspected) exposure to COVID-19; Z12.11 Encounter for screening for malignant neoplasm of colon; Z90.49 Acquired absence of other specified parts of digestive tract; Z88.1 Allergy status to other antibiotic agents; Z88.2 Allergy status to sulfonamides; Z88.8 Allergy status to other drugs, medicaments and biological substances; Z87.891 Personal history of nicotine dependence; Z83.3 Family history of diabetes mellitus; Z82.49 Family history of ischemic heart disease and other diseases of the circulatory system

== ENCOUNTER 2020-10-12 11:19 | Inpatient (IN) | payer OTHER, MEDICAID ==
[~2020-10-12] VITALS: Ht 149.9 cm; Wt 63.6 kg
[~2020-10-12 11:19] MED LIST changes: +BAYER CHEWABLE81 MG PO; +NEOMYCIN SULFA500 MG PO; +NITROGLYCERIN0.4 MG SUBLING; +PLAVIX 75 MG TA75 M1 PO; +XIFAXAN550 M1 PO
[2020-10-12 11:21] VITALS: BP 141/110
[2020-10-12 11:49] LABS: ABSOLUTE EOSINOPHILS 0.1 thou/uL (0.0-0.7); ABSOLUTE LYMPHOCYTES 1.2 thou/uL (0.8-5.3); ABSOLUTE MONOCYTES 0.4 thou/uL (0.0-1.2); ABSOLUTE NEUTROPHILS 5.2 thou/uL (1.6-8.1); BASOPHILS 0.3 %; EOSINOPHILS 0.8 %; HEMATOCRIT 36.7 % (37.0-47.0); HEMOGLOBIN 12.4 gm/dL (12.0-15.0); LYMPHOCYTES 17.7 %; MCH 32.6 pg (26.0-34.0); MCHC 33.8 g/dL (28.0-37.0); MCV 96.7 fL (80.0-100.0); MONOCYTES 6.4 %; MPV 6.9 fl. (7.2-11.1); NUCLEATED RBCS 0 /100WBC; PLATELET COUNT* 186 thou/uL (150-400); POLYS 74.8 %; RBC 3.79 mil/uL (4.20-5.00); RDW-CV 13.5 % (10.5-14.5)
[2020-10-12 11:58] LABS: CALCIUM 9.3 mg/dL (8.5-10.1); CREATININE 0.9 mg/dL (0.6-1.3); POTASSIUM 3.2 mmol/L (3.5-5.1)
[2020-10-12 12:01] LABS: APTT 26.2 Seconds (25.0-31.3); INR 1.1; PROTIME 11.3 Seconds (9.20-11.50)
[2020-10-12 12:08] LABS: ALBUMIN 3.3 g/dL (3.4-5.0); MAGNESIUM 1.4 mg/dL (1.8-2.4); TOTAL BILIRUBIN 0.8 mg/dL (<0.1-1.0); TOTAL PROTEIN 6.2 g/dL (6.4-8.2)
--- NOTE | 2020-10-12 14:51 | EKG ---
[place] [address] ELECTROCARDIOGRAM REPORT Name: JEMMABRENDEN Rodriguez Room: [address]R.#: [id number] Admission: 10/12/20 Attend Phys: Srinivasa Paredes Discharge: Date of : 37 Date of Service: 10/12/20 1126 Report #: [id number] THIS REPORT FOR: //name// [facility] ED Test Date: 2020-10-12 Test Time: 11:26:52 Pat Name: BRENDEN EASTON Department: Room: [facility] Gender: F Furnace Erector: 14 : 1935 Requested By: Gael Dale Order Number: [id number] MD: Feng Baig Measurements Intervals [place] Rate: 61 P: -24 [place]: 174 QRS: -17 QRSD: 97 T: 121 QT: 423 QTc: 426 Interpretive Statements Sinus rhythm Borderline left axis deviation septal infarct, old Repol abnrm suggests ischemia, lateral leads Compared to ECG 09/28/2020 03:28:46 Early repolarization now present Myocardial infarct finding still present Electronically Signed On 10-12-2020 14:51:03 CDT by Feng Baig [email or web address] <ELECTRONICALLY SIGNED> By: Feng Baig MD, FACC 10/12/20 1451 1126 1126 Feng Baig MD, [facility] /EPI
[2020-10-12 15:38] VITALS: BP 140/60
[2020-10-12 15:50] VITALS: BP 137/83
[2020-10-12 20:00] VITALS: BP 147/55
[2020-10-12 23:43] VITALS: BP 161/69
[2020-10-13 03:53] VITALS: BP 126/67
[2020-10-13 04:24] LABS: HEMOGLOBIN 12.5 gm/dL (12.0-15.0); MCH 32.6 pg (26.0-34.0); MCHC 33.9 g/dL (28.0-37.0); MCV 96.2 fL (80.0-100.0); MPV 7.7 fl. (7.2-11.1); RBC 3.84 mil/uL (4.20-5.00); RDW-CV 13.6 % (10.5-14.5); WBC 6.5 thou/uL (4.0-11.0)
[2020-10-13 04:45] LABS: ALBUMIN 3.4 g/dL (3.4-5.0); ALKALINE PHOSPHATASE 68 U/L (46-116); ANION GAP 4 mmol/L (7-16); BUN 7 mg/dL (7-18); CALCIUM 8.1 mg/dL (8.5-10.1); CHLORIDE 108 mmol/L (98-107); CO2 32 mmol/L (21-32); CREATININE 0.8 mg/dL (0.6-1.3); GLUCOSE 113 mg/dL (70-99); MAGNESIUM 1.8 mg/dL (1.8-2.4); SGOT 33 U/L (15-37); SGPT 31 U/L (30-65); SODIUM 144 mmol/L (136-145); TOTAL BILIRUBIN 1.1 mg/dL (<0.1-1.0); TOTAL PROTEIN 6.4 g/dL (6.4-8.2); TROPONIN-I LEVEL <0.06 ng/mL (<0.06)
[2020-10-13 04:46] LABS: POTASSIUM 4.8 mmol/L (3.5-5.1)
[2020-10-13 09:00] VITALS: BP 145/92; BP 147/71
[2020-10-13 12:00] VITALS: BP 167/67
[2020-10-13 13:02] VITALS: BP 147/71
--- NOTE | 2020-10-13 13:11 | 2DMMODE ---
[place] [address] 2 D/M-MODE ECHOCARDIOGRAM Name: EASTONBRENDEN Michael Room: [address] IN [facility]#: [id number] Admission: 10/12/20 Attend Phys: Srinivasa Paredes Discharge: Date of : 37 Date of Service: 10/13/20 1311 Report #: [id number] THIS REPORT FOR: cc: Manuel Neil Adam J DO Blick, David R. MD [facility] ~ APPROVED REPORT Study performed: 10/13/2020 10:05:56 EXAM: Comprehensive 2D, Doppler, and color-flow Echocardiogram Patient Location: In-Patient Room #: [facility] Status: routine BSA: 1.58 HR: 56 bpm BP: 126/67 mmHg Rhythm: NSR Other Information Study Quality: Good Indications angina 2D Dimensions IVSd: 8.80 (7-11mm) LVOT Diam: 19.92 (18-24mm) LVDd: 47.43 mm PWd: 9.10 (7-11mm) Ascending Ao: 28.00 (22-36mm) LVDs: 22.69 (25-40mm) Aortic Root: 30.23 mm Volumes Left Atrial Volume (Systole) LA ESV Index: 27.70 mL/m2 Aortic Valve AoV Peak Enrrique.: 1.32 m/s AO Peak Gr.: 6.97 mmHg LVOT Max P.93 mmHg AO Mean Gr.: 3.25 mmHg LVOT Mean P.37 mmHg LVOT Max V: 0.86 m/s AO V2 VTI: 33.41 cm LVOT Mean V: 0.53 m/s DIMITRI (VTI): 2.05 cm2 LVOT V1 VTI: 21.99 [place] [address] 2 D/M-MODE ECHOCARDIOGRAM Name: BRENDEN EASTON Room: [address] IN ..#: [id number] Admission: 10/12/20 Attend Phys: Srinivasa Paredes Discharge: Date of : 37 Date of Service: 10/13/20 1311 Report #: [id number] Mitral Valve E/A Ratio: 1.10 MV Decel. Time: 209.27 ms MV E Max Enrrique.: 0.88 m/s MV PHT: 60.69 ms MVA (PHT): 3.63 cm2 TDI E/Lateral E': 12.57 E/Medial E': 7.33 Medial E' Enrrique.: 0.12 m/s Lateral E' Enrrique.: 0.07 m/s Pulmonary Valve PV Peak Enrrique.: 0.88 m/s PV Peak Gr.: 3.10 mmHg Tricuspid Valve RAP Estimate: 5.00 mmHg TR Peak Gr.: 26.10 mmHg RVSP: 31.00 mmHg PA Pressure: 31.00 mmHg Left Ventricle The left ventricle is normal size. There is normal LV segmental wall motion. There is normal left ventricular wall thickness. Left ventricular systolic function is normal. The left ventricular ejection fraction is within the normal range. LVEF is 60-65%. The left ventricular diastolic function is normal. Right Ventricle The right ventricle is normal size. The right ventricular systolic function is normal. Atria The left atrium size is normal. The right atrium size is normal. Aortic Valve Mild aortic valve sclerosis. No aortic regurgitation is present. There is no aortic valvular stenosis. Mitral Valve There is mitral annular calcification. Trace mitral regurgitation. No evidence of mitral valve stenosis. Tricuspid Valve The tricuspid valve is normal in structure. Trace tricuspid regurgitation. Borderline pulmonary [place] [address] 2 D/M-MODE ECHOCARDIOGRAM Name: BRENDEN EASTON Room: [address]#: [id number] Admission: 10/12/20 Attend Phys: Srinivasa Paredes Discharge: Date of : 37 Date of Service: 10/13/20 1311 Report #: [id number] Pulmonic Valve The pulmonary valve is normal in structure. There is no pulmonic valvular regurgitation. Great Vessels The aortic root is normal in size. IVC is normal in size and collapses >50% with inspiration. Pericardium There is no pericardial effusion. <Conclusion> LVEF is 60-65%. Mild aortic valve sclerosis. <ELECTRONICALLY SIGNED> By: Feng Baig MD, FACC 10/13/20 131 10 10 Feng Baig MD, FACC /INF
--- NOTE | 2020-10-13 15:36 | CON ---
[address] [address] CONSULTATION Name: BRENDEN EASTON Michael Room: [address] IN M.R.#: [id number] Admission: 10/12/20 Attend Phys: Srinivasa Echevarria, Discharge: Date of : 37 Report #: [id number] THIS REPORT FOR: cc: Manuel Neil Adam J DO ~ Hernando Wood MD DATE OF SERVICE: 10/13/2020 Please note at the time of this dictation, the patient was seen and physically examined by myself. REASON FOR CONSULTATION: Anemia and abdominal pain. HISTORY OF PRESENT ILLNESS: This is an 85-year-old female who presented to the Emergency Room with complaints of some right-sided chest discomfort and she states she was having some diarrhea. The patient was seen by us the beginning of September. She underwent an EGD and colonoscopy. EGD showed esophagitis and gastritis, which was negative for H. pylori and medium-size hiatal hernia. Colonoscopy revealed diverticulosis, nonbleeding hemorrhoids and negative random colon biopsy. She was treated with neomycin and Xifaxan for possible small bowel bacterial overgrowth. She has not completed that therapy. In talking with her, she states her bowels had been loose now. Yesterday, she did not have a bowel movement. Today, she states she has had two formed stools so far this morning. She has not been taking any Imodium at this time. She has been taking Protonix daily at home as well. At the present time at the time of this dictation, she is not complaining of any generalized discomfort at this time. She has continued to be on Plavix and aspirin since she underwent a nuclear stress test that demonstrated a small focus of apical ischemia and does have a history of stents in the past. ALLERGIES: SULFA, REMERON, MYRBETRIQ, MECLOMEN, LEVAQUIN, GLYCOPYRROLATE, ENALAPRIL, BENADRYL AND CLONAZEPAM. MEDICATIONS: From home include Imodium, amlodipine, Glucotrol, simvastatin, Prevagen, Xanax, melatonin, atenolol, Cozaar, guaifenesin, neomycin and Xifaxan which she has not completed, Plavix, aspirin and cholestyramine. PAST MEDICAL HISTORY: Includes hypertension, depression, skin cancer from her face, history of diarrhea, gastritis and esophagitis. PAST SURGICAL HISTORY: Tonsillectomy, colon resection. She has had lysis of adhesions, cholecystectomy, left total hip, left partial upper lobe lobectomy, left and right total knee replacements [place] [address] CONSULTATION Name: JEMMABRENDEN Michael Room: [address] IN ..#: [id number] Admission: 10/12/20 Attend Phys: Srinivasa Echevarria, Discharge: Date of : 36 Report #: [id number] FAMILY HISTORY: Noncontributory. SOCIAL HISTORY: Denies any alcohol, tobacco or illegal drug use. REVIEW OF SYSTEMS: Twelve-point review of systems is essentially negative except what is mentioned in the HPI. PHYSICAL EXAMINATION: VITAL SIGNS: Temperature 36.8, pulse 64, respirations 17, blood pressure 126/67. HEART: Regular rate and rhythm. LUNGS: Diminished, but clear. ABDOMEN: Soft, positive bowel sounds in all 4 quadrants with no masses or tenderness noted. LABORATORY DATA: Hemoglobin is 12.5, white count is 6.3, platelets 175. GFR is 68. Total bilirubin 1.1, alkaline phosphatase 68, ALT 31, AST is 33. CT showed some constipation with biliary dilatation which likely is related to a previous cholecystectomy. IMPRESSION: 1. Abdominal pain seems to have resolved. 2. Small bowel bacterial overgrowth recently being treated and has not completed treatment. 3. She did mention a little bit of early satiety that she gets full quickly. 4. Esophagitis, recent EGD. 5. Gastritis, negative for H. pylori. 6. Diarrhea, improving. 7. Anticoagulant therapy. PLAN: 1. The patient needs to finish up her neomycin and Xifaxan side effects and for her small bowel bacterial overgrowth and then we will start a probiotic after she completes. 2. We will get a gastric emptying test for her complaint of early satiety. 3. The patient was informed of her path results. 4. No endoscopic evaluation will be needed at this time. Await GET results [place] [address] CONSULTATION Name: BRENDEN EASTON Room: [address] IN [facility]#: [id number] Admission: 10/12/20 Attend Phys: Srinivasa Echevarria, Discharge: Date of : 36 Report #: [id number] Thank you for allowing us to participate in this patient's care. Please do not hesitate to call with any questions in regard to this consult. <ELECTRONICALLY SIGNED> By: Hernando Wood MD 10/13/20 1536 [id number] Wood MD /nt
[2020-10-13 16:00] VITALS: BP 153/70
[2020-10-13 20:00] VITALS: BP 141/62
[2020-10-14 00:46] VITALS: BP 144/58
[2020-10-14 00:48] VITALS: BP 139/67
[2020-10-14 05:00] VITALS: BP 131/67
[2020-10-14 08:30] VITALS: BP 148/62
[2020-10-14 12:25] VITALS: BP 141/51
[2020-10-14] MEDS ORDERED: NORTRIPTYLINE H10 M1 PO (15:12)
[2020-10-14 15:58] VITALS: BP 147/71
== END 2020-10-14 16:32 | disposition home health service (06) | DRG 392 ==
LOC: M.ERS 11:19 → M.TBA-ER 12:46 → M.2W 15:48
PROVIDERS: Emergency Medicine Emergency Medical Services; ADMIT Family Medicine; ATTEND Family Medicine
DX: K29.00 Acute gastritis without bleeding (principal); I24.9 Acute ischemic heart disease, unspecified; I10 Essential (primary) hypertension; F32.9 Major depressive disorder, single episode, unspecified; K44.9 Diaphragmatic hernia without obstruction or gangrene; E66.9 Obesity, unspecified; K21.00 Gastro-esophageal reflux disease with esophagitis, without bleeding; E87.6 Hypokalemia; E78.5 Hyperlipidemia, unspecified; K59.00 Constipation, unspecified; I25.119 Atherosclerotic heart disease of native coronary artery with unspecified angina pectoris; R68.81 Early satiety; K57.90 Diverticulosis of intestine, part unspecified, without perforation or abscess without bleeding; K83.8 Other specified diseases of biliary tract; Z96.642 Presence of left artificial hip joint; Z96.653 Presence of artificial knee joint, bilateral; Z20.822 Contact with and (suspected) exposure to COVID-19; Z90.49 Acquired absence of other specified parts of digestive tract; Z85.828 Personal history of other malignant neoplasm of skin; Z79.01 Long term (current) use of anticoagulants; Z79.82 Long term (current) use of aspirin; Z79.899 Other long term (current) drug therapy; Z88.1 Allergy status to other antibiotic agents; Z88.2 Allergy status to sulfonamides; Z88.8 Allergy status to other drugs, medicaments and biological substances; Z87.891 Personal history of nicotine dependence; Z68.28 Body mass index [BMI] 28.0-28.9, adult; Z11.9 Encounter for screening for infectious and parasitic diseases, unspecified; Z95.5 Presence of coronary angioplasty implant and graft

== ENCOUNTER 2021-01-16 12:37 | Observation (INO) | payer OTHER, MEDICAID ==
[~2021-01-16] VITALS: Ht 149.9 cm; Wt 64.9 kg
--- NOTE | ~2021-01-16 | CON ---
[address] [address] CONSULTATION Name: BRENDEN EASTON Michael Room: [address] IN M.R.#: [id number] Admission: 01/17/21 Attend Phys: Analy Lyn MD Discharge: Date of : 36 Report #: [id number] THIS REPORT FOR: cc: Manuel Neil Adam J DO Khosla, Parveen K. MD ~ DOC #: [id number] Giovanny Guadarrama MD DATE OF CONSULTATION: 01/17/2021 HISTORY OF PRESENT ILLNESS: This is an 85-year-old female patient who is admitted with multiple symptoms. Neurologically, she tells me that she was unstable. She has had these spells are going on for a year and a half. She will become unstable and then she will become better. She was unstable on her feet at home, but she said she is doing fine now. Rest of the history is pretty poor and she cannot tell me how long these spells last and whether they are associated with any other problem or not. She also had some nausea and vomiting with it. A CT scan of the head showed chronic changes, but nothing acute. REVIEW OF SYSTEMS: Positive for multiple problems. She has abdominal problems. She has anxiety. She has diarrhea. She has seen a reception interviewer. She has back pain. She has seen Dr. Raza. She has seen her and I reviewed that note. She is on multiple medications including aspirin and Plavix. She has been seen by Cardiology here and those notes were reviewed. Presently, she is not complaining of any, eye, ENT symptoms. She is not short of breath. She does have a cardiac history. She complained of some nausea, vomiting, which is better. She complained of some nonspecific urinary symptoms to me. She does have a psychiatric history. She has musculoskeletal problems with the back, which is a longstanding problem going on for few years. She does not have any new dermatological, hematological features. She does not have any throat features. PAST MEDICAL HISTORY: Positive for numerous problems including abdominal problems. FAMILY HISTORY: Negative for early age stroke. SOCIAL HISTORY: She does not smoke or drink alcohol at the moment. PHYSICAL EXAMINATION: The patient is alert, responsive, able to follow simple and complex commands. Her speech, concentration, fund of knowledge and memory is her baseline. Cranial nerve examination II-XII was mostly unremarkable. Strength and sensation is unremarkable. I could not elicit reflexes in the lower extremity. I do not know what her baseline is. There is no meningeal sign. There is no carotid bruit. I could not look at the [place] [address] CONSULTATION Name: BRENDEN EASTON Room: [address] IN .R.#: [id number] Admission: 01/17/21 Attend Phys: Analy Lyn MD Discharge: Date of : 36 Report #: [id number] Her pulses are palpable. She has no edema, cyanosis or jaundice. No thyroid mass. No carotid bruit. Hearing and vision looks adequate. There is no facial asymmetry. She is reasonably well-built. Blood pressure is 123/58, respirations 18, pulse 55, temperature 98.8. Cardiac and respiratory examination is unremarkable. LABORATORY DATA: White count is 6.5. CT scan was reviewed and summarized above. IMPRESSION AND PLAN: Pretty unusual symptom, but it looks chronic. These are going on for few years. I will do a CT angio. She had some dye yesterday, so I will give her some fluid to be on the safe side. A CT angio of the head and neck is normal. She needs multiple testing as an outpatient. She will need an EMG. She needs a spine surgeon to look at her spine or she needs a family doctor to order spine workup. If we do not find any cause or CT angiogram is normal, she also may need an MRI of the brain. I discussed all of it with this patient. I discussed her options in that. She will like to get this workup done as an outpatient and it can be scheduled through the above described avenue and we will see how she does with physical therapy and with the CT angio of the head and neck showed. Thank you very much for this referral. MD RICKY Rivera/JOVANNI By: 0840 [id number] Guadarrama MD /nt
[~2021-01-16 12:37] MED LIST changes: +NORTRIPTYLINE H10 M1 PO
[2021-01-16 12:50] VITALS: BP 135/78
[2021-01-16] MEDS ORDERED: METFORMIN HCL500 M3 PO (13:11)
[2021-01-16] MEDS ORDERED: EVISTA60 MG PO (13:12)
[2021-01-16] MEDS ORDERED: PAROXETINE HCL20 MG PO (13:12)
[2021-01-16 13:13] LABS: ABSOLUTE BASOPHILS 0.1 thou/uL (0.0-0.2); ABSOLUTE EOSINOPHILS 0.1 thou/uL (0.0-0.7); ABSOLUTE MONOCYTES 0.7 thou/uL (0.0-1.2); ABSOLUTE NEUTROPHILS 6.1 thou/uL (1.6-8.1); BASOPHILS 0.8 %; HEMATOCRIT 36.9 % (37.0-47.0); HEMOGLOBIN 12.7 gm/dL (12.0-15.0); MCH 32.7 pg (26.0-34.0); MCHC 34.3 g/dL (28.0-37.0); MCV 95.3 fL (80.0-100.0); MONOCYTES 7.8 %; MPV 7.1 fl. (7.2-11.1); NUCLEATED RBCS 0 /100WBC; PLATELET COUNT* 194 thou/uL (150-400); POLYS 68.4 %; RBC 3.88 mil/uL (4.20-5.00); RDW-CV 13.5 % (10.5-14.5); WBC 8.9 thou/uL (4.0-11.0)
[2021-01-16] MEDS ORDERED: ACID CONTROLLER20 MG PO (13:13)
[2021-01-16] MEDS ORDERED: CALCIUM500 MG PO (13:13)
[2021-01-16] MEDS ORDERED: DESYREL150 MG PO (13:14)
[2021-01-16] MEDS ORDERED: SIMVASTATIN80 MG PO (13:14)
[2021-01-16] MEDS ORDERED: COZAAR 25 MG TA25 M1 PO (13:16)
[2021-01-16] MEDS ORDERED: MAGNESIUM250 M1 PO (13:17)
[2021-01-16] MEDS ORDERED: FISH OIL 1,001000 M3 PO (13:17)
[2021-01-16] MEDS ORDERED: VITAMIN D350 MCG PO (13:18)
[2021-01-16] MEDS ORDERED: AZO BLADDER CO300 MG PO (13:19)
[2021-01-16] MEDS ORDERED: VITAMIN C1000 MG PO (13:19)
[2021-01-16] MEDS ORDERED: [UNRECOGNIZED DRUG - OTHER] PO (13:20)
[2021-01-16 13:24] LABS: CALCIUM 8.8 mg/dL (8.5-10.1); POTASSIUM 3.5 mmol/L (3.5-5.1)
[2021-01-16 13:35] LABS: ALBUMIN 3.6 g/dL (3.4-5.0); TOTAL BILIRUBIN 0.9 mg/dL (<0.1-1.0); TOTAL PROTEIN 6.6 g/dL (6.4-8.2)
[2021-01-16 14:03] LABS: URINE BILIRUBIN NEGATIVE (Negative); URINE BLOOD NEGATIVE (Negative); URINE CLARITY CLEAR; URINE COLOR YELLOW; URINE GLUCOSE-RANDOM NEGATIVE (Negative); URINE KETONES TRACE (Negative); URINE LEUKOCYTES-REFLEX 1+ (Negative); URINE NITRITE-REFLEX NEGATIVE (Negative); URINE PROTEIN NEGATIVE (Negative); URINE UROBILINOGEN 0.2 E.U./dl (0.2-1.0)
[2021-01-16 14:13] LABS: BACTERIA-REFLEX 1-9 Few /HPF (None Seen); CASTS None Seen /LPF (None Seen); CRYSTALS None Seen /LPF (None Seen); SQUAMOUS 4-10 Moderate /LPF (0-3); URINE RBC 0-2 Rare /HPF (0-2); URINE WBC-REFLEX 0-5 Rare /HPF (0-5)
[2021-01-16 15:31] LABS: CHOLESTEROL 127 mg/dL (<200); HDL CHOLESTEROL 51 mg/dL (>40); LDL CHOLESTEROL 61 mg/dL (<100); SERUM ASSESSMENT Clear; TC:HDL 2.5 Ratio (Not establshd); TRIGLYCERIDE 79 mg/dL (<150); VLDL 16 mg/dL (<40)
--- NOTE | 2021-01-16 15:50 | EKG ---
[place] [address] ELECTROCARDIOGRAM REPORT Name: JEMMABRENDEN Michael Room: [address]#: [id number] Admission: 01/16/21 Attend Phys: Analy Lyn, Discharge: Date of : 37 Date of Service: 01/16/21 1253 Report #: [id number] THIS REPORT FOR: //name// [facility] ED Test Date: 2021-01-16 Test Time: 12:53:58 Pat Name: BRENDEN EASTON Department: Room: [facility] Gender: F Helicopter Technician: : 1935 Requested By: Michele John Order Number: [id number] MD: Sukhjinder Vincent Measurements Intervals [place] Rate: 65 P: 36 [place]: 190 QRS: -27 QRSD: 100 T: 94 QT: 440 QTc: 458 Interpretive Statements Sinus rhythm LVH with secondary repolarization abnormality Anterior Q waves, possibly due to LVH or anteroseptal scar Compared to ECG 10/12/2020 11:26:52 Left ventricular hypertrophy now present Q waves now present Electronically Signed On 01-16-2021 15:50:17 CDT by Sukhjinder Vincent [email or web address] <ELECTRONICALLY SIGNED> By: Sukhjinder Vincent MD, [facility] 01/16/21 1550 1253 1253 Sukhjinder Vincent MD, [facility] /EPI
[2021-01-16 18:31] VITALS: BP 118/53
[2021-01-16 20:20] VITALS: BP 115/63
[2021-01-17] VITALS: BP 120/53
[2021-01-17 00:15] LABS: HEMATOCRIT 33.6 % (37.0-47.0); HEMOGLOBIN 11.8 gm/dL (12.0-15.0); MCH 33.3 pg (26.0-34.0); MCHC 35.1 g/dL (28.0-37.0); MCV 94.8 fL (80.0-100.0); MPV 6.8 fl. (7.2-11.1); RBC 3.54 mil/uL (4.20-5.00); RDW-CV 13.3 % (10.5-14.5); WBC 6.5 thou/uL (4.0-11.0)
[2021-01-17 00:43] LABS: CALCIUM 8.8 mg/dL (8.5-10.1); POTASSIUM 3.9 mmol/L (3.5-5.1)
[2021-01-17 00:52] LABS: ALBUMIN 3.3 g/dL (3.4-5.0); MAGNESIUM 1.2 mg/dL (1.8-2.4); TOTAL BILIRUBIN 0.7 mg/dL (<0.1-1.0); TOTAL PROTEIN 6.1 g/dL (6.4-8.2)
--- NOTE | 2021-01-17 02:29 | NUR ---
ASSUMED CARE OF PT AT 1900. PT IS ALERT AND ORIENTED. VSS. PERRLA. NO COMPLAINTS OF PAIN. PT IS IN SINUS RYTHM WITH PAC'S. PT IS SLEEPING QUIETLY IN BED. RESPIRATIONS ARE EVEN AND NONLABORED. WILL CONTINUE TO MONITOR PT.
[2021-01-17 04:53] VITALS: BP 123/58
[2021-01-17 08:00] VITALS: BP 133/60
[2021-01-17 12:00] VITALS: BP 120/84
--- NOTE | 2021-01-17 13:20 | NUR ---
Pt is A&O. Resides at home alone. Independent. Pt has in home caregivers that assist with cleaning and cooking. Hx of [facility] HH. Hx of skilled at [facility]. Pt uses a walker for mobility. Pt has cpap. GI following for possible bilary obs. Anticipate dc in a few days. ?HH at dc
[2021-01-17 16:00] VITALS: BP 149/72
--- NOTE | 2021-01-17 18:40 | NUR ---
RECEIVED REPORT. ASSUMED CARE OF PT AROUND 0730. AM ASSESSMENT AND VITALS COMPLETED CHARTED. MEDS PER EMAR. SUPERVISOR CYTOLOGY IN PLACE. MULTIPLE DIAGNOSTIC TESTS COMPLETED THIS SHIFT. SEE RESULTS. PT HOPING TO DC TOMORROW. TOLERATING DIET. NO COMPLAINTS. FALL PRECAUTIONS IN PLACE. CALL LIGHT WITHIN REACH. HOURLY ROUNDING PERFORMED.
--- NOTE | 2021-01-17 19:43 | CON ---
[address] [address] CONSULTATION Name: EASTONBRENDEN Michael Room: [address] IN .R.#: [id number] Admission: 01/17/21 Attend Phys: Analy Lyn MD Discharge: Date of : 36 Report #: [id number] THIS REPORT FOR: cc: Manuel Neil Adam J DO Vardakis, Gregory DO DOC #: [id number] cc: DO Noni Nicole, SEWING MACHINIST DATE OF CONSULTATION: 01/17/2021 Please note at the time of this dictation, the patient was seen and physically examined by myself. REASON FOR CONSULTATION: Right upper quadrant pain. HISTORY OF PRESENT ILLNESS: This is an 85-year-old female presenting here today with chief complaint of having several concerns: 1. Being very unsteady on her feet. 2. Worsening of her back pain. 3. Issues with right upper quadrant pain, which seems to have been worsening. 4. Diarrhea with both stool and urinary incontinence. The patient was last seen by us in September of this year, the beginning of September and she underwent an EGD-colonoscopy, which showed a medium hiatal hernia, some gastritis, biopsies were negative and grade B esophagitis as well. She was treated with proton pump inhibitor and to continue that daily. Colonoscopy showed diverticulosis with nonbleeding internal hemorrhoids. The patient was then treated with neomycin and Xifaxan, suspecting some small bowel bacterial overgrowth, which she completed that treatment and she did not see any improvement in her symptoms. The patient does take quite a bit of Imodium anytime that she has diarrhea, which could be likely related to constipation with oozing of loose stool around that she has no control over. ALLERGIES: CLONAZEPAM, BENADRYL, ENALAPRIL, GLYCOPYRROLATE, LEVAQUIN, MECLOFENAMATE, MIRABEGRON, REMERON, AND SULFA. MEDICATIONS FROM HOME: Include amlodipine, glipizide, simvastatin, Prevagen, Xanax, metformin, paroxetine, Evista, calcium, famotidine, Desyrel, losartan, magnesium, omega 3, vitamin D3, pumpkin seed, antidiarrheal and atenolol. PAST MEDICAL HISTORY: Hypertension, diabetes, depression, history of skin cancer, issues with diarrhea caused by constipation, coronary artery disease, depression [place] [address] CONSULTATION Name: BRENDEN EASTON Room: [address]#: [id number] Admission: 01/17/21 Attend Phys: Analy Lyn MD Discharge: Date of : 36 Report #: [id number] PAST SURGICAL HISTORY: Tonsillectomy, colon resection, lysis of adhesions, left total hip, left partial upper and lower lobe lobectomy, left and right total knee replacement, appendectomy and skin cancer removal. FAMILY HISTORY: Noncontributory. SOCIAL HISTORY: Former smoker. Denies any alcohol or illegal drug use. REVIEW OF SYSTEMS: Twelve-point review of systems is essentially negative except what is mentioned in the HPI. PHYSICAL EXAMINATION: VITAL SIGNS: Temperature 37.1, pulse 55, respirations 18, blood pressure 123/58. HEART: Regular rate and rhythm. LUNGS: Clear. ABDOMEN: Soft, positive bowel sounds in all 4 quadrants with some slight tenderness noted in the right upper quadrant. LABORATORY DATA: Hemoglobin 11.8, white count is 6.5, platelets 166. GFR is 53, total bilirubin 0.7, alkaline phosphatase 101, ALT 49, AST is 88. CT scan showed hepatic steatosis, prior cholecystectomy, general dilatation of the intrahepatic tree, upper limits of normal, common hepatic and CBD down to the pancreas is slightly less than 1 cm and diffuse to moderate large amount of stool throughout the entire colon. The patient did have a GET done back in September of this year that was normal. It did show adrenal mass had increased as well. Ultrasound in 2018 showed a dilated CBD that was 1.2 cm. We will compare with ultrasound that is scheduled for later today. IMPRESSION: 1. Abdominal pain, right upper quadrant. 2. Dilated common bile duct concerns. 3. Constipation followed with diarrhea -- large amount of stool noted in colon via CT. 4. Hepatic steatosis. 5. History of esophagitis and gastritis back in September of this year. 6. Back pain, chronic. PLAN: 1. Ultrasound to be done today at 1430 and we will compare to previous one. 2. We will continue with Protonix along with her famotidine. 3. We will give her Dulcolax 20 mg now and continue with the MiraLax daily. 4. We will await above results and make further [place] [address] CONSULTATION Name: BRENDEN EASTON Room: [address] M.R.#: [id number] Admission: 01/17/21 Attend Phys: Analy Lyn MD Discharge: Date of : 36 Report #: [id number] Thank you for allowing us to participate in this patient's care. Please do not hesitate to call with any questions regarding this consult. DO GAYLE Dolan/UYEN <ELECTRONICALLY SIGNED> By: Jagdish Lopez DO 01/17/21 1943 [id number] [id number] Lopez DO /nt
[2021-01-17 21:05] VITALS: BP 111/52
[2021-01-18 07:55] LABS: HEMATOCRIT 33.4 % (37.0-47.0); HEMOGLOBIN 11.8 gm/dL (12.0-15.0); MCH 33.7 pg (26.0-34.0); MCHC 35.4 g/dL (28.0-37.0); MCV 95.1 fL (80.0-100.0); MPV 7.5 fl. (7.2-11.1); RBC 3.51 mil/uL (4.20-5.00); RDW-CV 13.6 % (10.5-14.5); WBC 6.3 thou/uL (4.0-11.0)
[2021-01-18 08:00] VITALS: BP 131/57
[2021-01-18] MEDS ORDERED: PROTONIX40 M2 PO (08:54)
[2021-01-18] MEDS ORDERED: COLESTID1 GM PO (08:54)
[2021-01-18] MEDS ORDERED: BENTYL 10 MG CA10 M1 PO (08:54)
[2021-01-18] MEDS ORDERED: MACROBID 100 M100 MG PO (08:54)
[2021-01-18 08:55] LABS: CALCIUM 8.9 mg/dL (8.5-10.1); CREATININE 0.9 mg/dL (0.6-1.3); MAGNESIUM 1.6 mg/dL (1.8-2.4); POTASSIUM 3.3 mmol/L (3.5-5.1); TOTAL BILIRUBIN 0.2 mg/dL (<0.1-1.0)
[2021-01-18 08:57] LABS: ALBUMIN 3.3 g/dL (3.4-5.0); TOTAL PROTEIN 6.1 g/dL (6.4-8.2)
--- NOTE | 2021-01-18 11:30 | NUR ---
THIS GLASS OR MIRROR INSPECTOR AGREES WITH EVALUATION AND RECOMMENDATIONS WRITTEN BY JOSE J PATRICIO FOR THIS DAY. MIRIAM JOSHUAT
[2021-01-18 12:00] VITALS: BP 133/93
[2021-01-18 12:08] VITALS: BP 131/57
--- NOTE | 2021-01-18 12:13 | NUR ---
Pt medically stable to dc home. JOSE spoke with Carol at [facility], they are able to accept Pt back on to service. Faxed HH referral and dc orders.
[2021-01-18 12:34] VITALS: BP 131/57
--- NOTE | 2021-01-18 14:34 | EKG ---
[place] [address] ELECTROCARDIOGRAM REPORT Name: BRENDEN EASTON Room: [address]#: [id number] Admission: 01/16/21 Attend Phys: Analy Lyn, Discharge: Date of : 37 Date of Service: 01/17/212140 Report #: [id number] THIS REPORT FOR: //name// [facility] Test Date: 2021-01-17 Test Time: 21:41:49 Pat Name: BRENDEN EASTON Department: Room: [address] Gender: F Hand Etcher: BETTINA : 1935 Requested By: Analy Lyn Order Number: [id number] Reading MD: Sukhjinder Vincent Measurements Intervals [place] Rate: 60 P: 42 [place]: 192 QRS: -20 QRSD: 104 T: 179 QT: 428 QTc: 428 Interpretive Statements Sinus rhythm Probable LVH with secondary repol abnrm Compared to ECG 01/16/2021 12:53:58 Q waves no longer present Electronically Signed On 01-18-2021 14:34:17 CDT by Sukhjinder Vincent [email or web address] <ELECTRONICALLY SIGNED> By: Sukhjinder Vincent MD, [facility] 01/18/21 1434 2141 2141 Sukhjinder Vincent MD, [facility] /EPI
== END 2021-01-18 17:40 | disposition home health service (06) ==
LOC: M.ERS 12:37 → M.TBA-ER 15:02 → M.2W 20:38
PROVIDERS: Family Medicine; ADMIT Internal Medicine; ATTEND Internal Medicine
DX: R10.11 Right upper quadrant pain (principal); R11.2 Nausea with vomiting, unspecified; Z20.822 Contact with and (suspected) exposure to COVID-19; R27.0 Ataxia, unspecified; I10 Essential (primary) hypertension; R19.7 Diarrhea, unspecified; R91.1 Solitary pulmonary nodule; N39.0 Urinary tract infection, site not specified; B96.89 Other specified bacterial agents as the cause of diseases classified elsewhere; F32.9 Major depressive disorder, single episode, unspecified; M54.9 Dorsalgia, unspecified; G89.29 Other chronic pain; K83.8 Other specified diseases of biliary tract; K59.00 Constipation, unspecified; K76.0 Fatty (change of) liver, not elsewhere classified; Z79.899 Other long term (current) drug therapy

== ENCOUNTER 2021-06-07 23:07 | Emergency (ER) | payer OTHER, MEDICAID ==
[~2021-06-07] VITALS: Ht 149.9 cm; Wt 63.5 kg
[~2021-06-07 23:07] MED LIST changes: +ACID CONTROLLER20 MG PO; +AZO BLADDER CO300 MG PO; +BENTYL 10 MG CA10 M1 PO; +CALCIUM500 MG PO; +COLESTID1 GM PO; +DESYREL150 MG PO; +EVISTA60 MG PO; +FISH OIL 1,001000 M3 PO; +MACROBID 100 M100 MG PO; +MAGNESIUM250 M1 PO; +METFORMIN HCL500 M3 PO; +PAROXETINE HCL20 MG PO; +PROTONIX40 M2 PO; +SIMVASTATIN80 MG PO; +VITAMIN C1000 MG PO; +VITAMIN D350 MCG PO; +[UNRECOGNIZED DRUG - OTHER] PO
[2021-06-08 00:26] VITALS: BP 150/58
== END 2021-06-08 00:40 | disposition home or self-care (01) ==
LOC: M.ERS 23:07
DX: H61.21 Impacted cerumen, right ear (principal); H92.01 Otalgia, right ear; I10 Essential (primary) hypertension; F32.9 Major depressive disorder, single episode, unspecified; Z90.89 Acquired absence of other organs; Z90.49 Acquired absence of other specified parts of digestive tract; Z79.899 Other long term (current) drug therapy; Z87.891 Personal history of nicotine dependence; Z88.2 Allergy status to sulfonamides; Z88.8 Allergy status to other drugs, medicaments and biological substances